=== PATIENT | female | born 1955 | race African-American/Black ===

== ENCOUNTER 2016-12-29 11:41 | Inpatient (IN) | payer OTHER ==
[2016-12-29 12:54] VITALS: BMI 22.1
--- NOTE | 2016-12-29 17:55 | HP ---
Admission ROS [facility] - [facility] Chief Complaint: I WANT TO GO TO REHAB Allergies/Adverse Reactions: Allergies Allergy/AdvReac Type Severity Reaction Status Date / Time No Known Allergies Allergy Verified 12/29/16 15:29 History of Present Illness: 61 YEARS OLD FEMALE WITH LONG HISTORY OF ALCOHOL COCAINE NICOTINE DEPENDENCE, HAS HYPERTENSION, HYPERLIPIDEMIA, AND DEPRESSION IS ADMITTED TO REHAB Exam Limitations: No Limitations - Ebola screening Have you traveled outside of the country in the last 21 days: No Have you had contact with anyone from an Ebola affected area: No Have you been sick,other than usual withdrawal symptoms: No Do you have a fever: No - Review of Systems Constitutional: Weight Stable EENT: reports: No Symptoms Reported Respiratory: reports: Shortness of Breath Cardiac: reports: No Symptoms Reported GI: reports: No Symptoms Reported : reports: No Symptoms Reported Musculoskeletal: reports: No Symptoms Reported Integumentary: reports: No Symptoms Reported Neuro: reports: No Symptoms reported Endocrine: reports: No Symptoms Reported Hematology: reports: No Symptoms Reported Psychiatric: reports: Judgement Intact, Orientated x3, Depressed Other Systems: Reviewed and Negative Patient History - Patient Medical History Hx Anemia: No Hx Asthma: No Hx Chronic Obstructive Pulmonary Disease (COPD): No Hx Cancer: No Hx Cardiac Disorders: No Hx Congestive Heart Failure: No Hx Hypertension: Yes Hx Hypercholesterolemia: Yes Hx Pacemaker: No HX Cerebrovascular Accident: No Hx Seizures: No Hx Dementia: No Hx Diabetes: No Hx Gastrointestinal Disorders: No Hx Liver Disease: No Hx Genitourinary Disorders: No Hx Sexually Transmitted Disorders: No Hx Renal Disease (ESRD): No Hx Thyroid Disease: No Hx Human Immunodeficiency Virus (HIV): No Hx Hepatitis C: No Hx Depression: Yes Hx Suicide Attempt: No Hx Bipolar Disorder: No Hx Schizophrenia: No - Patient Surgical History Past Surgical History: No - PPD History Previous Implant?: Yes Documented Results: Negative w/o proof Implanted On Prior [facility] Admission?: No PPD to be Administered?: Yes - Reproductive History Patient is a Female of Child Bearing Age (11 -55 yrs old): No Patient : No - Smoking Cessation Smoking history: Current every day smoker Have you smoked in the past 12 months: Yes Aproximately how many cigarettes per day: 3 Cigars Per Day: 0 Hx Chewing Tobacco Use: No Initiated information on smoking cessation: Yes 'Breaking Loose' booklet given: 12/29/16 - Substance & Tx. History Hx Alcohol Use: Yes Hx Substance Use: Yes Substance Use Type: Alcohol, Cocaine Hx Substance Use Treatment: Yes - Substances Abused Alcohol Route: Oral Frequency: Daily Amount used: [id number] Age of first use: 27 Date of Last Use: 12/29/16 (12/22/16) Family Disease History - Family Disease History Family Disease History: Heart Disease: Sister () Admission Physical Exam [facility] - Vital Signs Vital Signs: Vital Signs - 24 hr 12/29/16 12:52 Temperature 97.1 F L Pulse Rate 81 Respiratory 16 Rate Blood Pressure 120/79 - Physical General Appearance: Yes: No Apparent Distress, Nourished, Appropriately Dressed HEENTM: Yes: Hearing grossly Normal, Normal ENT Inspection, Normocephalic, Normal Voice Respiratory: Yes: Chest Non-Tender, Lungs Clear, Normal Breath Sounds, No Respiratory Distress, No Accessory Muscle Use Neck: Yes: Supple, Trachea in good position Breast: Yes: Breasts Symetrical Cardiology: Yes: Regular Rhythm, Regular Rate, S1, S2 Abdominal: Yes: Non Tender, Soft Genitourinary: Yes: Within Normal Limits Back: Yes: Normal Inspection Musculoskeletal: Yes: full range of Motion, Gait Steady Extremities: Yes: Normal Inspection, Normal Range of Motion, Non-Tender Neurological: Yes: Fully Oriented, Alert, Motor Strength 5/5, Normal Response, Depressed Affect Integumentary: Yes: Warm Lymphatic: Yes: Within Normal Limits - Diagnostic (1) Alcohol dependence with uncomplicated withdrawal Current Visit: Yes Status: Chronic (2) Cocaine dependence, uncomplicated Current Visit: Yes Status: Chronic (3) Hypertension Current Visit: Yes Status: Chronic Qualifiers: Hypertension type: essential hypertension Qualified Code(s): I10 - Essential (primary) hypertension (4) Hyperlipidemia Current Visit: Yes Status: Chronic Qualifiers: Hyperlipidemia type: pure hypercholesterolemia Qualified Code(s): E78.00 - Pure hypercholesterolemia, unspecified; E78.0 - Pure hypercholesterolemia (5) Nicotine dependence Current Visit: Yes Status: Chronic Qualifiers: Nicotine product type: cigarettes Substance use status: in withdrawal Qualified Code(s): F17.213 - Nicotine dependence, cigarettes, with withdrawal (6) Depression (emotion) Current Visit: Yes Status: Suspected Qualifiers: Depression Type: dysthymia Qualified Code(s): F34.1 - Dysthymic disorder Cleared for Admission [facility] - Detox or Rehab [facility] Level of Care: Observation Bed Detox Regimen/Protocol: Not Applicable Claeared for Rehab Admission: Yes [facility] Breath Alcohol Content Breath Alcohol Content: 0.022 Urine Pregancy Test - Result Urine Test Results: Negative- NO Line Present Urine Drug Screen - Results Drug Screen Negative: No Urine Drug Screen Results: DIPAK-Cocaine
[2016-12-29] MEDS ORDERED: diphenhydrAMINE HCL 50 MG CAPSULE PO PRN (17:56)
[2016-12-29] MEDS ORDERED: hydrOXYzine PAMOATE 50 MG CAPSULE (FP) PO PRN (17:56)
[2016-12-29] MEDS ORDERED: MENTHOL/PHENOL 1 EACH UD MM PRN (17:56)
[2016-12-29] MEDS ORDERED: MAGNESIUM HYDROX 2400MG/30ML ORAL SUSPENSION 30 ML CUP PO PRN (17:56)
[2016-12-29] MEDS ORDERED: MAGNESIUM CITRATE 300 ML BOTTLE PO PRN (17:56)
[2016-12-29] MEDS ORDERED: LOPERAMIDE HCL 2 MG CAPSULE PO PRN (17:56)
[2016-12-29] MEDS ORDERED: ACETAMINOPHEN 325 MG TABLET (FP) PO PRN (17:56)
[2016-12-29] MEDS ORDERED: guaiFENesin/D-METHORPHAN HB 10 ML UNIT-DOSE CUPS PO PRN (17:56)
[2016-12-29] MEDS ORDERED: NICOTINE POLACRILEX 2 MG GUM BC PRN (17:56)
[2016-12-29 22:26] LABS: URINE APPEARANCE SLCLOUDY; URINE BILIRUBIN NEGATIVE (NEGATIVE); URINE BLOOD NEGATIVE (NEGATIVE); URINE COLOR LTYELLOW; URINE GLUCOSE (UA) NEGATIVE (NEGATIVE); URINE KETONE NEGATIVE (NEGATIVE); URINE NITRITE NEGATIVE (NEGATIVE); URINE PROTEIN NEGATIVE (NEGATIVE); URINE UROBILINOGEN NEGATIVE E.U./dl (0.2-1.0)
[2016-12-29] MEDS: ATORVASTATIN CA 10 MG TABLET (FP) PO SCH (22:40)
[2016-12-29 22:42] LABS: URINE LEUK ESTERASE 3+ (NEGATIVE)
[2016-12-29 23:01] LABS: URINE BACTERIA RARE /hpf (NONE SEEN); URINE MUCUS RARE; URINE RBC 5 /hpf (0-3); URINE WBC 9 /hpf (3-5); YEAST FEW
[2016-12-29] MEDS: THIAMINE HCL 100 MG TABLET (FP) PO SCH (23:11)
[2016-12-29] MEDS: BENZTROPINE MESYLATE 1 MG TABLET (FP) PO SCH (23:14)
[2016-12-29] MEDS: risperiDONE 0.5 MG TABLET (FP) PO SCH (23:14)
--- NOTE | 2016-12-30 09:17 | EKG ---
Test Reason : Blood Pressure : / mmHG Vent. Rate : 068 BPM Atrial Rate : 068 BPM P-R Int : 196 ms QRS Dur : 088 ms QT Int : 398 ms P-R-T Axes : 051 080 076 degrees QTc Int : 423 ms NORMAL SINUS RHYTHM NONSPECIFIC T WAVE ABNORMALITY ABNORMAL ECG NO PREVIOUS ECGS AVAILABLE Confirmed by CHRISTINE FLORENCE MD ([id number]) on 12/30/2016 9:17:09 AM Referred By: Lori Che Confirmed By:CHRISTINE FLORENCE MD
[2016-12-30 09:50] LABS: MCHC 33.6 g/dl (32.0-36.0); MEAN PLT VOLUME 9.3 fl (7.5-11.1); PLATELET COUNT 210 K/MM3 (134-434); RDW 13.8 % (11.6-15.6); WHITE BLOOD COUNT 6.8 K/mm3 (4.0-10.0)
[2016-12-30 10:17] LABS: ALBUMIN 3.9 g/dl (3.4-5.0); ANION GAP 9 (8-16); CALCIUM 9.1 mg/dL (8.5-10.1); CO2 28 mmol/L (21-32); GLUCOSE,RANDOM 70 mg/dL (74-106)
[2016-12-30 10:20] LABS: ALK PHOS 67 U/L (45-117); BILIRUBIN,TOTAL 0.4 mg/dL (0.2-1.0); COCKROFT - GAULT 96.1435; CREATININE 0.6 mg/dL (0.55-1.02); SGOT/AST 22 U/L (15-37); SGPT/ALT 22 U/L (12-78); TOT PROT 7.8 g/dl (6.4-8.2)
[2016-12-30] MEDS: PRENATAL VITAMINS W/ FOLIC ACID TABLET (FP) PO SCH (10:57)
[2016-12-30] MEDS: TOPIRAMATE 25 MG TABLET (FP) PO SCH ×2 (10:58→10:59)
[2016-12-30] MEDS: ASPIRIN 81 MG CHEWABLE TABLETS PO SCH (10:58)
[2016-12-30] MEDS: amLODIPine BESYLATE 5 MG TABLET (FP) PO SCH (10:58)
[2016-12-30] MEDS: NICOTINE 14 MG/24 HOURS TOPICAL PATCH TD SCH (10:59)
[2016-12-30 11:11] LABS: HIV 1 & 2 AB NEGATIVE; HIV 1 AGp24 NEGATIVE
[2016-12-30] MEDS ORDERED: PNEUMOC 13-VAL CONJ-DIP CRM/PF 0.5 ML DISP.SYRIN IM ONE (12:00)
--- NOTE | 2016-12-30 13:51 | HP ---
Psychiatrist Admission - Data Date of interview: 12/30/16 Admission source: [facility] Identifying data: This is the first admission to [address] [place] [address] for this 61 years old single AA childless female resides in Supportive housing,on SSI. Medical History: Significanr for HTN,Hyperlipidemia. Psychiatric History: First contact with psychiatrist was in 1984 after having first psychotic episode.Patient was admitted to [facility].Patient was dx with Schizoaffective disorder.She was placed on [facility]with good response.No more psychiatric hospitalizations,no suicidal attempts.Patient sees psychiatrist on outpatient basis,currently she is attending [facility] clinic in the [place].Current medications:Trazodone 100 mg po hs and Risperidone 2 mg po hs Physical/Sexual Abuse/Trauma History: denies Vital Signs: Vital Signs - 24 hr 12/30/16 12/30/16 12/30/16 00:30 03:30 07:52 Temperature 98.1 F Pulse Rate 67 Respiratory 17 16 18 Rate Blood Pressure 111/72 12/30/16 10:00 Temperature Pulse Rate 66 Respiratory Rate Blood Pressure 115/68 Allergies/Adverse Reactions: Allergies Allergy/AdvReac Type Severity Reaction Status Date / Time No Known Allergies Allergy Verified 12/29/16 15:29 Date of last physical exam: 12/29/16 Concur with the findings of this exam: Yes - Substance Abuse/Tx History Hx Alcohol Use: Yes (reports drinking since 23 yo,progressed to daily drinking) Hx Substance Use: Yes (cocaine /crack a few years ago) Substance Use Type: Alcohol, Cocaine Hx Substance Use Treatment: Yes (this is her first inpatient custodial treatment ) - Admission Criteria Previous failed treatment: Yes Poor recovery environment: Yes Comorbidities: Yes Lacks judgement: Yes Mental Status Exam - Mental Status Exam Alert and Oriented to: Time, Place, Person Cognitive Function: Grossly Intact Patient Appearance: Unkempt Mood: Euthymic Affect: Mood Congruent Patient Behavior: Cooperative Speech Pattern: Clear Voice Loudness: Normal Thought Process: Goal Oriented Thought Disorder: Being Controlled Hallucinations: Denies Suicidal Ideation: Denies Homicidal Ideation: Denies Insight/Judgement: Fair Sleep: Fair Appetite: Good Muscle strength/Tone: Normal Gait/Station: Normal Psychiatric Findings - Problem List ([place] 1, 2,3) (1) Alcohol dependence with uncomplicated withdrawal Current Visit: Yes Status: Chronic (2) Cocaine dependence, uncomplicated Current Visit: Yes Status: Chronic (3) Hyperlipidemia Current Visit: Yes Status: Chronic Qualifiers: Hyperlipidemia type: pure hypercholesterolemia Qualified Code(s): E78.00 - Pure hypercholesterolemia, unspecified; E78.0 - Pure hypercholesterolemia (4) Hypertension Current Visit: Yes Status: Chronic Qualifiers: Hypertension type: essential hypertension Qualified Code(s): I10 - Essential (primary) hypertension (5) Nicotine dependence Current Visit: Yes Status: Chronic Qualifiers: Nicotine product type: cigarettes Substance use status: in withdrawal Qualified Code(s): F17.213 - Nicotine dependence, cigarettes, with withdrawal (6) Schizoaffective disorder Current Visit: Yes Status: Chronic - Initial Treatment Plan Initial Treatment Plan: Risperidone 2 mg po hs and Trazodone 100 mg po hs.Will monitor progress.
[2016-12-30] MEDS ORDERED: PNEUMOCOCCAL 23 VACCINE 0.5 ML VIAL IM ONE (15:26)
[2016-12-30] MEDS: BENZTROPINE MESYLATE 1 MG TABLET (FP) PO SCH (22:05)
[2016-12-30] MEDS: risperiDONE 0.5 MG TABLET (FP) PO SCH (22:05)
[2016-12-30] MEDS: ATORVASTATIN CA 10 MG TABLET (FP) PO SCH (22:05)
[2016-12-30] MEDS: THIAMINE HCL 100 MG TABLET (FP) PO SCH (22:05)
[2016-12-31] MEDS: PRENATAL VITAMINS W/ FOLIC ACID TABLET (FP) PO SCH (10:50)
[2016-12-31] MEDS: ASPIRIN 81 MG CHEWABLE TABLETS PO SCH (10:50)
[2016-12-31] MEDS: TOPIRAMATE 25 MG TABLET (FP) PO SCH ×2 (10:50→10:53)
[2016-12-31] MEDS: amLODIPine BESYLATE 5 MG TABLET (FP) PO SCH (10:50)
[2016-12-31] MEDS: NICOTINE 14 MG/24 HOURS TOPICAL PATCH TD SCH (10:51)
[2016-12-31] MEDS ORDERED: PNEUMOC 13-VAL CONJ-DIP CRM/PF 0.5 ML DISP.SYRIN IM ONE (12:00)
--- NOTE | 2016-12-31 16:17 | EKG ---
Test Reason : Blood Pressure : / mmHG Vent. Rate : 068 BPM Atrial Rate : 068 BPM P-R Int : 196 ms QRS Dur : 090 ms QT Int : 420 ms P-R-T Axes : 065 080 049 degrees QTc Int : 446 ms NORMAL SINUS RHYTHM NONSPECIFIC T WAVE ABNORMALITY ABNORMAL ECG WHEN COMPARED WITH ECG OF 29-DEC-2016 22:03, NONSPECIFIC T WAVE ABNORMALITY NOW EVIDENT IN INFERIOR LEADS NONSPECIFIC T WAVE ABNORMALITY HAS REPLACED INVERTED T WAVES IN ANTERIOR LEADS Confirmed by SHARITA JEAN MD ([id number]) on 12/31/2016 4:17:06 PM Referred By: Lori Che Confirmed By:SHARITA JEAN MD
[2016-12-31] MEDS: BENZTROPINE MESYLATE 1 MG TABLET (FP) PO SCH (21:56)
[2016-12-31] MEDS: ATORVASTATIN CA 10 MG TABLET (FP) PO SCH (21:56)
[2016-12-31] MEDS: risperiDONE 0.5 MG TABLET (FP) PO SCH (21:56)
[2016-12-31] MEDS: THIAMINE HCL 100 MG TABLET (FP) PO SCH (21:57)
[2017-01-01] MEDS: PRENATAL VITAMINS W/ FOLIC ACID TABLET (FP) PO SCH (10:24)
[2017-01-01] MEDS: TOPIRAMATE 25 MG TABLET (FP) PO SCH ×2 (10:24→10:26)
[2017-01-01] MEDS: amLODIPine BESYLATE 5 MG TABLET (FP) PO SCH (10:24)
[2017-01-01] MEDS: ASPIRIN 81 MG CHEWABLE TABLETS PO SCH (10:25)
[2017-01-01] MEDS: NICOTINE 14 MG/24 HOURS TOPICAL PATCH TD SCH (10:25)
[2017-01-01] MEDS: risperiDONE 2 MG TABLET PO SCH (21:57)
[2017-01-01] MEDS: ATORVASTATIN CA 10 MG TABLET (FP) PO SCH (21:57)
[2017-01-01] MEDS: traZODone HCL 100 MG TABLET (FP) PO SCH (21:57)
[2017-01-01] MEDS: BENZTROPINE MESYLATE 1 MG TABLET (FP) PO SCH (21:57)
[2017-01-01] MEDS: THIAMINE HCL 100 MG TABLET (FP) PO SCH (21:57)
[2017-01-02] MEDS: NICOTINE 14 MG/24 HOURS TOPICAL PATCH TD SCH (10:54)
[2017-01-02] MEDS: TOPIRAMATE 25 MG TABLET (FP) PO SCH ×2 (10:54→10:57)
[2017-01-02] MEDS: PRENATAL VITAMINS W/ FOLIC ACID TABLET (FP) PO SCH (10:54)
[2017-01-02] MEDS: ASPIRIN 81 MG CHEWABLE TABLETS PO SCH (10:54)
[2017-01-02] MEDS: amLODIPine BESYLATE 5 MG TABLET (FP) PO SCH (10:54)
[2017-01-02] MEDS: traZODone HCL 100 MG TABLET (FP) PO SCH (21:47)
[2017-01-02] MEDS: risperiDONE 2 MG TABLET PO SCH (21:47)
[2017-01-02] MEDS: THIAMINE HCL 100 MG TABLET (FP) PO SCH (21:48)
[2017-01-02] MEDS: ATORVASTATIN CA 10 MG TABLET (FP) PO SCH (21:48)
[2017-01-02] MEDS: BENZTROPINE MESYLATE 1 MG TABLET (FP) PO SCH (21:48)
[2017-01-03] MEDS: PRENATAL VITAMINS W/ FOLIC ACID TABLET (FP) PO SCH (10:49)
[2017-01-03] MEDS: TOPIRAMATE 25 MG TABLET (FP) PO SCH (10:50)
[2017-01-03] MEDS: ASPIRIN 81 MG CHEWABLE TABLETS PO SCH (10:50)
[2017-01-03] MEDS: NICOTINE 14 MG/24 HOURS TOPICAL PATCH TD SCH (10:51)
[2017-01-03] MEDS: amLODIPine BESYLATE 5 MG TABLET (FP) PO SCH (11:19)
[2017-01-03] MEDS ORDERED: PT OWN MED DRAWER 7, Y5N ONE ×2 (11:20→13:34)
[2017-01-03] MEDS: ERGOCALCIFEROL (VITAMIN D2) 50,000 UNIT CAPSULE (FP) PO SCH (15:00)
[2017-01-03] MEDS: ATORVASTATIN CA 10 MG TABLET (FP) PO SCH (21:55)
[2017-01-03] MEDS: THIAMINE HCL 100 MG TABLET (FP) PO SCH (21:55)
[2017-01-03] MEDS: risperiDONE 2 MG TABLET PO SCH (21:55)
[2017-01-03] MEDS: BENZTROPINE MESYLATE 1 MG TABLET (FP) PO SCH (21:55)
[2017-01-03] MEDS: traZODone HCL 100 MG TABLET (FP) PO SCH (21:55)
[2017-01-04] MEDS ORDERED: CHOLECALCIFEROL PO SCH (10:00)
[2017-01-04] MEDS: ASPIRIN 81 MG CHEWABLE TABLETS PO SCH (10:54)
[2017-01-04] MEDS: NICOTINE 14 MG/24 HOURS TOPICAL PATCH TD SCH (10:54)
[2017-01-04] MEDS: TOPIRAMATE 25 MG TABLET (FP) PO SCH (10:54)
[2017-01-04] MEDS: amLODIPine BESYLATE 5 MG TABLET (FP) PO SCH (10:54)
[2017-01-04] MEDS: PRENATAL VITAMINS W/ FOLIC ACID TABLET (FP) PO SCH (10:54)
[2017-01-04] MEDS: risperiDONE 2 MG TABLET PO SCH (23:04)
[2017-01-04] MEDS: traZODone HCL 100 MG TABLET (FP) PO SCH (23:04)
[2017-01-04] MEDS: THIAMINE HCL 100 MG TABLET (FP) PO SCH (23:04)
[2017-01-04] MEDS: BENZTROPINE MESYLATE 1 MG TABLET (FP) PO SCH (23:04)
[2017-01-04] MEDS: ATORVASTATIN CA 10 MG TABLET (FP) PO SCH (23:04)
[2017-01-05] MEDS: ASPIRIN 81 MG CHEWABLE TABLETS PO SCH (11:04)
[2017-01-05] MEDS: amLODIPine BESYLATE 5 MG TABLET (FP) PO SCH (11:04)
[2017-01-05] MEDS: PRENATAL VITAMINS W/ FOLIC ACID TABLET (FP) PO SCH (11:04)
[2017-01-05] MEDS: TOPIRAMATE 25 MG TABLET (FP) PO SCH (11:05)
[2017-01-05] MEDS: NICOTINE 14 MG/24 HOURS TOPICAL PATCH TD SCH (11:05)
[2017-01-05] MEDS: risperiDONE 2 MG TABLET PO SCH (21:59)
[2017-01-05] MEDS: ATORVASTATIN CA 10 MG TABLET (FP) PO SCH (21:59)
[2017-01-05] MEDS: THIAMINE HCL 100 MG TABLET (FP) PO SCH (21:59)
[2017-01-05] MEDS: traZODone HCL 100 MG TABLET (FP) PO SCH (21:59)
[2017-01-05] MEDS: BENZTROPINE MESYLATE 1 MG TABLET (FP) PO SCH (21:59)
[2017-01-06] MEDS: ASPIRIN 81 MG CHEWABLE TABLETS PO SCH (10:41)
[2017-01-06] MEDS: NICOTINE 14 MG/24 HOURS TOPICAL PATCH TD SCH (10:41)
[2017-01-06] MEDS: TOPIRAMATE 25 MG TABLET (FP) PO SCH (10:42)
[2017-01-06] MEDS: amLODIPine BESYLATE 5 MG TABLET (FP) PO SCH (10:42)
[2017-01-06] MEDS: PRENATAL VITAMINS W/ FOLIC ACID TABLET (FP) PO SCH (10:42)
[2017-01-06] MEDS: BENZTROPINE MESYLATE 1 MG TABLET (FP) PO SCH (22:06)
[2017-01-06] MEDS: THIAMINE HCL 100 MG TABLET (FP) PO SCH (22:06)
[2017-01-06] MEDS: traZODone HCL 100 MG TABLET (FP) PO SCH (22:06)
[2017-01-06] MEDS: risperiDONE 2 MG TABLET PO SCH (22:06)
[2017-01-06] MEDS: ATORVASTATIN CA 10 MG TABLET (FP) PO SCH (22:06)
[2017-01-07] MEDS: PRENATAL VITAMINS W/ FOLIC ACID TABLET (FP) PO SCH (10:58)
[2017-01-07] MEDS: ASPIRIN 81 MG CHEWABLE TABLETS PO SCH (10:58)
[2017-01-07] MEDS: amLODIPine BESYLATE 5 MG TABLET (FP) PO SCH (10:59)
[2017-01-07] MEDS: NICOTINE 14 MG/24 HOURS TOPICAL PATCH TD SCH (10:59)
[2017-01-07] MEDS: TOPIRAMATE 25 MG TABLET (FP) PO SCH (10:59)
[2017-01-07] MEDS: traZODone HCL 100 MG TABLET (FP) PO SCH (22:02)
[2017-01-07] MEDS: THIAMINE HCL 100 MG TABLET (FP) PO SCH (22:02)
[2017-01-07] MEDS: ATORVASTATIN CA 10 MG TABLET (FP) PO SCH (22:02)
[2017-01-07] MEDS: BENZTROPINE MESYLATE 1 MG TABLET (FP) PO SCH (22:02)
[2017-01-07] MEDS: risperiDONE 2 MG TABLET PO SCH (22:02)
[2017-01-08] MEDS: ASPIRIN 81 MG CHEWABLE TABLETS PO SCH (11:16)
[2017-01-08] MEDS: amLODIPine BESYLATE 5 MG TABLET (FP) PO SCH (11:16)
[2017-01-08] MEDS: PRENATAL VITAMINS W/ FOLIC ACID TABLET (FP) PO SCH (11:16)
[2017-01-08] MEDS: TOPIRAMATE 25 MG TABLET (FP) PO SCH (11:16)
[2017-01-08] MEDS: NICOTINE 14 MG/24 HOURS TOPICAL PATCH TD SCH (11:17)
[2017-01-08] MEDS: ATORVASTATIN CA 10 MG TABLET (FP) PO SCH (22:04)
[2017-01-08] MEDS: BENZTROPINE MESYLATE 1 MG TABLET (FP) PO SCH (22:04)
[2017-01-08] MEDS: THIAMINE HCL 100 MG TABLET (FP) PO SCH (22:05)
[2017-01-08] MEDS: traZODone HCL 100 MG TABLET (FP) PO SCH (22:06)
[2017-01-08] MEDS: risperiDONE 2 MG TABLET PO SCH (22:06)
[2017-01-09] MEDS: PRENATAL VITAMINS W/ FOLIC ACID TABLET (FP) PO SCH (10:45)
[2017-01-09] MEDS: TOPIRAMATE 25 MG TABLET (FP) PO SCH (10:45)
[2017-01-09] MEDS: ASPIRIN 81 MG CHEWABLE TABLETS PO SCH (10:45)
[2017-01-09] MEDS: amLODIPine BESYLATE 5 MG TABLET (FP) PO SCH (10:46)
[2017-01-09] MEDS: NICOTINE 14 MG/24 HOURS TOPICAL PATCH TD SCH (10:46)
[2017-01-09] MEDS: traZODone HCL 100 MG TABLET (FP) PO SCH (21:58)
[2017-01-09] MEDS: BENZTROPINE MESYLATE 1 MG TABLET (FP) PO SCH (21:58)
[2017-01-09] MEDS: risperiDONE 2 MG TABLET PO SCH (21:58)
[2017-01-09] MEDS: ATORVASTATIN CA 10 MG TABLET (FP) PO SCH (21:58)
[2017-01-09] MEDS: THIAMINE HCL 100 MG TABLET (FP) PO SCH (21:58)
[2017-01-10] MEDS ORDERED: PT OWN MED DRAWER 7, Y5N ONE (08:39)
[2017-01-10] MEDS: ASPIRIN 81 MG CHEWABLE TABLETS PO SCH (10:42)
[2017-01-10] MEDS: NICOTINE 14 MG/24 HOURS TOPICAL PATCH TD SCH (10:43)
[2017-01-10] MEDS: TOPIRAMATE 25 MG TABLET (FP) PO SCH (10:43)
[2017-01-10] MEDS: ERGOCALCIFEROL (VITAMIN D2) 50,000 UNIT CAPSULE (FP) PO SCH (10:43)
[2017-01-10] MEDS: PRENATAL VITAMINS W/ FOLIC ACID TABLET (FP) PO SCH (10:43)
[2017-01-10] MEDS: amLODIPine BESYLATE 5 MG TABLET (FP) PO SCH (10:43)
[2017-01-10] MEDS: BENZTROPINE MESYLATE 1 MG TABLET (FP) PO SCH (22:00)
[2017-01-10] MEDS: traZODone HCL 100 MG TABLET (FP) PO SCH (22:00)
[2017-01-10] MEDS: THIAMINE HCL 100 MG TABLET (FP) PO SCH (22:00)
[2017-01-10] MEDS: risperiDONE 2 MG TABLET PO SCH (22:01)
[2017-01-10] MEDS: ATORVASTATIN CA 10 MG TABLET (FP) PO SCH (22:01)
[2017-01-11] MEDS: ASPIRIN 81 MG CHEWABLE TABLETS PO SCH (11:15)
[2017-01-11] MEDS: PRENATAL VITAMINS W/ FOLIC ACID TABLET (FP) PO SCH (11:16)
[2017-01-11] MEDS: amLODIPine BESYLATE 5 MG TABLET (FP) PO SCH (11:16)
[2017-01-11] MEDS: NICOTINE 14 MG/24 HOURS TOPICAL PATCH TD SCH (11:16)
[2017-01-11] MEDS: TOPIRAMATE 25 MG TABLET (FP) PO SCH (11:17)
[2017-01-11] MEDS: risperiDONE 2 MG TABLET PO SCH (22:09)
[2017-01-11] MEDS: ATORVASTATIN CA 10 MG TABLET (FP) PO SCH (22:09)
[2017-01-11] MEDS: THIAMINE HCL 100 MG TABLET (FP) PO SCH (22:09)
[2017-01-11] MEDS: BENZTROPINE MESYLATE 1 MG TABLET (FP) PO SCH (22:09)
[2017-01-11] MEDS: traZODone HCL 100 MG TABLET (FP) PO SCH (22:09)
[2017-01-12] MEDS: amLODIPine BESYLATE 5 MG TABLET (FP) PO SCH (11:07)
[2017-01-12] MEDS: TOPIRAMATE 25 MG TABLET (FP) PO SCH (11:07)
[2017-01-12] MEDS: PRENATAL VITAMINS W/ FOLIC ACID TABLET (FP) PO SCH (11:07)
[2017-01-12] MEDS: NICOTINE 14 MG/24 HOURS TOPICAL PATCH TD SCH (11:07)
[2017-01-12] MEDS: ASPIRIN 81 MG CHEWABLE TABLETS PO SCH (11:07)
[2017-01-12] MEDS: ATORVASTATIN CA 10 MG TABLET (FP) PO SCH (21:50)
[2017-01-12] MEDS: risperiDONE 2 MG TABLET PO SCH (21:50)
[2017-01-12] MEDS: BENZTROPINE MESYLATE 1 MG TABLET (FP) PO SCH (21:50)
[2017-01-12] MEDS: traZODone HCL 100 MG TABLET (FP) PO SCH (21:50)
[2017-01-12] MEDS: THIAMINE HCL 100 MG TABLET (FP) PO SCH (21:50)
[2017-01-13] MEDS: amLODIPine BESYLATE 5 MG TABLET (FP) PO SCH (10:34)
[2017-01-13] MEDS: ASPIRIN 81 MG CHEWABLE TABLETS PO SCH (10:34)
[2017-01-13] MEDS: NICOTINE 14 MG/24 HOURS TOPICAL PATCH TD SCH (10:34)
[2017-01-13] MEDS: PRENATAL VITAMINS W/ FOLIC ACID TABLET (FP) PO SCH (10:34)
[2017-01-13] MEDS: TOPIRAMATE 25 MG TABLET (FP) PO SCH (10:34)
[2017-01-13] MEDS: BENZTROPINE MESYLATE 1 MG TABLET (FP) PO SCH (22:01)
[2017-01-13] MEDS: ATORVASTATIN CA 10 MG TABLET (FP) PO SCH (22:01)
[2017-01-13] MEDS: risperiDONE 2 MG TABLET PO SCH (22:01)
[2017-01-13] MEDS: THIAMINE HCL 100 MG TABLET (FP) PO SCH (22:01)
[2017-01-13] MEDS: traZODone HCL 100 MG TABLET (FP) PO SCH (22:01)
[2017-01-13] MEDS ORDERED: PT OWN MED DRAWER 7, Y5N ONE (23:09)
[2017-01-14] MEDS: P-EPHED 60MG/TRIPROLIDI 2.5MG TABLET PO PRN (06:49)
[2017-01-14] MEDS: ASPIRIN 81 MG CHEWABLE TABLETS PO SCH (10:34)
[2017-01-14] MEDS: NICOTINE 14 MG/24 HOURS TOPICAL PATCH TD SCH (10:34)
[2017-01-14] MEDS: amLODIPine BESYLATE 5 MG TABLET (FP) PO SCH (10:35)
[2017-01-14] MEDS: TOPIRAMATE 25 MG TABLET (FP) PO SCH (10:35)
[2017-01-14] MEDS: PRENATAL VITAMINS W/ FOLIC ACID TABLET (FP) PO SCH (10:35)
[2017-01-14] MEDS ORDERED: PT OWN MED DRAWER 7, Y5N ONE (10:45)
[2017-01-14] MEDS: ATORVASTATIN CA 10 MG TABLET (FP) PO SCH (22:15)
[2017-01-14] MEDS: THIAMINE HCL 100 MG TABLET (FP) PO SCH (22:15)
[2017-01-14] MEDS: traZODone HCL 100 MG TABLET (FP) PO SCH (22:15)
[2017-01-14] MEDS: risperiDONE 2 MG TABLET PO SCH (22:16)
[2017-01-14] MEDS: BENZTROPINE MESYLATE 1 MG TABLET (FP) PO SCH (22:16)
[2017-01-15] MEDS: NICOTINE 14 MG/24 HOURS TOPICAL PATCH TD SCH (10:33)
[2017-01-15] MEDS: amLODIPine BESYLATE 5 MG TABLET (FP) PO SCH (10:33)
[2017-01-15] MEDS: ASPIRIN 81 MG CHEWABLE TABLETS PO SCH (10:35)
[2017-01-15] MEDS: TOPIRAMATE 25 MG TABLET (FP) PO SCH (10:35)
[2017-01-15] MEDS: PRENATAL VITAMINS W/ FOLIC ACID TABLET (FP) PO SCH (10:35)
[2017-01-15] MEDS: MAG HYDROX/AL HYDROX/SIMETH 30 ML UNIT-DOSE CUP PO PRN (19:01)
[2017-01-15] MEDS: BENZTROPINE MESYLATE 1 MG TABLET (FP) PO SCH (22:19)
[2017-01-15] MEDS: risperiDONE 2 MG TABLET PO SCH (22:19)
[2017-01-15] MEDS: ATORVASTATIN CA 10 MG TABLET (FP) PO SCH (22:20)
[2017-01-15] MEDS: THIAMINE HCL 100 MG TABLET (FP) PO SCH (22:20)
[2017-01-15] MEDS: traZODone HCL 100 MG TABLET (FP) PO SCH (22:20)
[2017-01-16] MEDS: PRENATAL VITAMINS W/ FOLIC ACID TABLET (FP) PO SCH (10:43)
[2017-01-16] MEDS: NICOTINE 14 MG/24 HOURS TOPICAL PATCH TD SCH (10:43)
[2017-01-16] MEDS: amLODIPine BESYLATE 5 MG TABLET (FP) PO SCH (10:44)
[2017-01-16] MEDS: TOPIRAMATE 25 MG TABLET (FP) PO SCH (10:44)
[2017-01-16] MEDS: ASPIRIN 81 MG CHEWABLE TABLETS PO SCH (10:44)
[2017-01-16] MEDS: BENZTROPINE MESYLATE 1 MG TABLET (FP) PO SCH (21:53)
[2017-01-16] MEDS: traZODone HCL 100 MG TABLET (FP) PO SCH (21:53)
[2017-01-16] MEDS: ATORVASTATIN CA 10 MG TABLET (FP) PO SCH (21:53)
[2017-01-16] MEDS: risperiDONE 2 MG TABLET PO SCH (21:53)
[2017-01-16] MEDS: THIAMINE HCL 100 MG TABLET (FP) PO SCH (21:54)
[2017-01-17] MEDS ORDERED: PT OWN MED DRAWER 7, Y5N ONE ×3 (09:11→10:39)
[2017-01-17] MEDS: amLODIPine BESYLATE 5 MG TABLET (FP) PO SCH (10:34)
[2017-01-17] MEDS: ASPIRIN 81 MG CHEWABLE TABLETS PO SCH (10:35)
[2017-01-17] MEDS: PRENATAL VITAMINS W/ FOLIC ACID TABLET (FP) PO SCH (10:35)
[2017-01-17] MEDS: ERGOCALCIFEROL (VITAMIN D2) 50,000 UNIT CAPSULE (FP) PO SCH (10:35)
[2017-01-17] MEDS: TOPIRAMATE 25 MG TABLET (FP) PO SCH (10:35)
[2017-01-17] MEDS: NICOTINE 14 MG/24 HOURS TOPICAL PATCH TD SCH (10:36)
[2017-01-17] MEDS: BENZTROPINE MESYLATE 1 MG TABLET (FP) PO SCH (21:58)
[2017-01-17] MEDS: risperiDONE 2 MG TABLET PO SCH (21:58)
[2017-01-17] MEDS: THIAMINE HCL 100 MG TABLET (FP) PO SCH (21:58)
[2017-01-17] MEDS: ATORVASTATIN CA 10 MG TABLET (FP) PO SCH (21:58)
[2017-01-17] MEDS: traZODone HCL 100 MG TABLET (FP) PO SCH (21:58)
[2017-01-18] MEDS: P-EPHED 60MG/TRIPROLIDI 2.5MG TABLET PO PRN (06:55)
[2017-01-18] MEDS: PRENATAL VITAMINS W/ FOLIC ACID TABLET (FP) PO SCH (10:37)
[2017-01-18] MEDS: NICOTINE 14 MG/24 HOURS TOPICAL PATCH TD SCH (10:38)
[2017-01-18] MEDS: ASPIRIN 81 MG CHEWABLE TABLETS PO SCH (10:38)
[2017-01-18] MEDS: amLODIPine BESYLATE 5 MG TABLET (FP) PO SCH (10:38)
[2017-01-18] MEDS: TOPIRAMATE 25 MG TABLET (FP) PO SCH (10:38)
[2017-01-18] MEDS: MAG HYDROX/AL HYDROX/SIMETH 30 ML UNIT-DOSE CUP PO PRN (19:56)
[2017-01-18] MEDS: traZODone HCL 100 MG TABLET (FP) PO SCH (21:48)
[2017-01-18] MEDS: BENZTROPINE MESYLATE 1 MG TABLET (FP) PO SCH (21:48)
[2017-01-18] MEDS: THIAMINE HCL 100 MG TABLET (FP) PO SCH (21:48)
[2017-01-18] MEDS: risperiDONE 2 MG TABLET PO SCH (21:48)
[2017-01-18] MEDS: ATORVASTATIN CA 10 MG TABLET (FP) PO SCH (21:48)
[2017-01-19] MEDS: NICOTINE 14 MG/24 HOURS TOPICAL PATCH TD SCH (11:02)
[2017-01-19] MEDS: PRENATAL VITAMINS W/ FOLIC ACID TABLET (FP) PO SCH (11:03)
[2017-01-19] MEDS: amLODIPine BESYLATE 5 MG TABLET (FP) PO SCH (11:03)
[2017-01-19] MEDS: TOPIRAMATE 25 MG TABLET (FP) PO SCH (11:03)
[2017-01-19] MEDS: ASPIRIN 81 MG CHEWABLE TABLETS PO SCH (11:03)
[2017-01-19] MEDS: ATORVASTATIN CA 10 MG TABLET (FP) PO SCH (21:47)
[2017-01-19] MEDS: BENZTROPINE MESYLATE 1 MG TABLET (FP) PO SCH (21:47)
[2017-01-19] MEDS: THIAMINE HCL 100 MG TABLET (FP) PO SCH (21:47)
[2017-01-19] MEDS: risperiDONE 2 MG TABLET PO SCH (21:47)
[2017-01-19] MEDS: traZODone HCL 100 MG TABLET (FP) PO SCH (21:48)
[2017-01-20] MEDS: TOPIRAMATE 25 MG TABLET (FP) PO SCH (10:42)
[2017-01-20] MEDS: amLODIPine BESYLATE 5 MG TABLET (FP) PO SCH (10:42)
[2017-01-20] MEDS: ASPIRIN 81 MG CHEWABLE TABLETS PO SCH (10:42)
[2017-01-20] MEDS: NICOTINE 14 MG/24 HOURS TOPICAL PATCH TD SCH (10:42)
[2017-01-20] MEDS: PRENATAL VITAMINS W/ FOLIC ACID TABLET (FP) PO SCH (10:42)
[2017-01-20] MEDS: ATORVASTATIN CA 10 MG TABLET (FP) PO SCH (22:00)
[2017-01-20] MEDS: THIAMINE HCL 100 MG TABLET (FP) PO SCH (22:00)
[2017-01-20] MEDS: BENZTROPINE MESYLATE 1 MG TABLET (FP) PO SCH (22:00)
[2017-01-20] MEDS: traZODone HCL 100 MG TABLET (FP) PO SCH (22:00)
[2017-01-20] MEDS: risperiDONE 2 MG TABLET PO SCH (22:00)
[2017-01-20] MEDS: MAG HYDROX/AL HYDROX/SIMETH 30 ML UNIT-DOSE CUP PO PRN (22:03)
[2017-01-21] MEDS: PRENATAL VITAMINS W/ FOLIC ACID TABLET (FP) PO SCH (10:24)
[2017-01-21] MEDS: ASPIRIN 81 MG CHEWABLE TABLETS PO SCH (10:24)
[2017-01-21] MEDS: TOPIRAMATE 25 MG TABLET (FP) PO SCH (10:24)
[2017-01-21] MEDS: amLODIPine BESYLATE 5 MG TABLET (FP) PO SCH (10:24)
[2017-01-21] MEDS: NICOTINE 14 MG/24 HOURS TOPICAL PATCH TD SCH (10:25)
[2017-01-21] MEDS: ATORVASTATIN CA 10 MG TABLET (FP) PO SCH (21:44)
[2017-01-21] MEDS: BENZTROPINE MESYLATE 1 MG TABLET (FP) PO SCH (21:44)
[2017-01-21] MEDS: THIAMINE HCL 100 MG TABLET (FP) PO SCH (21:44)
[2017-01-21] MEDS: traZODone HCL 100 MG TABLET (FP) PO SCH (21:44)
[2017-01-21] MEDS: risperiDONE 2 MG TABLET PO SCH (21:45)
[2017-01-22] MEDS: amLODIPine BESYLATE 5 MG TABLET (FP) PO SCH (10:24)
[2017-01-22] MEDS: PRENATAL VITAMINS W/ FOLIC ACID TABLET (FP) PO SCH (10:24)
[2017-01-22] MEDS: NICOTINE 14 MG/24 HOURS TOPICAL PATCH TD SCH (10:25)
[2017-01-22] MEDS: ASPIRIN 81 MG CHEWABLE TABLETS PO SCH (10:25)
[2017-01-22] MEDS: TOPIRAMATE 25 MG TABLET (FP) PO SCH (10:25)
[2017-01-22] MEDS: traZODone HCL 100 MG TABLET (FP) PO SCH (21:48)
[2017-01-22] MEDS: BENZTROPINE MESYLATE 1 MG TABLET (FP) PO SCH (21:48)
[2017-01-22] MEDS: ATORVASTATIN CA 10 MG TABLET (FP) PO SCH (21:48)
[2017-01-22] MEDS: THIAMINE HCL 100 MG TABLET (FP) PO SCH (21:48)
[2017-01-22] MEDS: risperiDONE 2 MG TABLET PO SCH (21:48)
[2017-01-23] MEDS: ASPIRIN 81 MG CHEWABLE TABLETS PO SCH (10:37)
[2017-01-23] MEDS: PRENATAL VITAMINS W/ FOLIC ACID TABLET (FP) PO SCH (10:37)
[2017-01-23] MEDS: TOPIRAMATE 25 MG TABLET (FP) PO SCH (10:38)
[2017-01-23] MEDS: amLODIPine BESYLATE 5 MG TABLET (FP) PO SCH (10:38)
[2017-01-23] MEDS: NICOTINE 14 MG/24 HOURS TOPICAL PATCH TD SCH (10:39)
[2017-01-23] MEDS: traZODone HCL 100 MG TABLET (FP) PO SCH (21:36)
[2017-01-23] MEDS: BENZTROPINE MESYLATE 1 MG TABLET (FP) PO SCH (21:36)
[2017-01-23] MEDS: risperiDONE 2 MG TABLET PO SCH (21:36)
[2017-01-23] MEDS: THIAMINE HCL 100 MG TABLET (FP) PO SCH (21:36)
[2017-01-23] MEDS: ATORVASTATIN CA 10 MG TABLET (FP) PO SCH (21:36)
[2017-01-24] MEDS: ASPIRIN 81 MG CHEWABLE TABLETS PO SCH (10:18)
[2017-01-24] MEDS: NICOTINE 14 MG/24 HOURS TOPICAL PATCH TD SCH (10:18)
[2017-01-24] MEDS: amLODIPine BESYLATE 5 MG TABLET (FP) PO SCH (10:18)
[2017-01-24] MEDS: TOPIRAMATE 25 MG TABLET (FP) PO SCH (10:18)
[2017-01-24] MEDS: PRENATAL VITAMINS W/ FOLIC ACID TABLET (FP) PO SCH (10:18)
[2017-01-24] MEDS ORDERED: PT OWN MED DRAWER 7, Y5N ONE (10:19)
[2017-01-24] MEDS: ERGOCALCIFEROL (VITAMIN D2) 50,000 UNIT CAPSULE (FP) PO SCH (10:19)
[2017-01-24] MEDS: THIAMINE HCL 100 MG TABLET (FP) PO SCH (21:45)
[2017-01-24] MEDS: ATORVASTATIN CA 10 MG TABLET (FP) PO SCH (21:45)
[2017-01-24] MEDS: risperiDONE 2 MG TABLET PO SCH (21:45)
[2017-01-24] MEDS: BENZTROPINE MESYLATE 1 MG TABLET (FP) PO SCH (21:45)
[2017-01-24] MEDS: traZODone HCL 100 MG TABLET (FP) PO SCH (21:45)
[2017-01-25] MEDS: P-EPHED 60MG/TRIPROLIDI 2.5MG TABLET PO PRN (06:07)
--- NOTE | 2017-01-25 10:05 | PN ---
Psychiatric Progress Note Vital Signs: Vital Signs Period Temp Pulse Resp BP Sys/[place] Pulse Ox Last 24 Hr 97.3 F 56 16-18 114/74 Date of Session: 01/25/17 Chief Complaint:: Discharge visit HPI: Patient addressed Alcohol and Cocaine dependence comorbid with Schizoaffective disorder. ROS: Significant for HTN,Hyperlipidemia. Current Medications: Active Medications Generic Name Dose Route Start Last Admin Trade Name Freq PRN Reason Stop Dose Admin Acetaminophen 650 mg 12/29/16 17:56 Tylenol - PO Q4H PRN PAIN Al Hydroxide/Mg Hydroxide 30 ml 12/29/16 17:56 01/20/17 22:03 Mylanta Oral Suspension - PO 30 ml Q6H PRN Administration DYSPEPSIA Amlodipine Besylate 5 mg 12/30/16 10:00 01/24/17 10:18 Norvasc - PO 5 mg DAILY ANGELES Administration Aspirin 81 mg 12/30/16 10:00 01/24/17 10:18 Asa - PO 81 mg DAILY ANGELES Administration Atorvastatin Calcium 10 mg 12/29/16 22:00 01/24/17 21:45 Lipitor - PO 10 mg HS ANGELES Administration Benztropine Mesylate 1 mg 12/29/16 22:00 01/24/17 21:45 Cogentin - PO 1 mg HS ANGELES Administration Diphenhydramine HCl 50 mg 12/29/16 17:56 12/31/16 21:58 Benadryl - PO 50 mg HSMR1 PRN Administration INSOMNIA Ergocalciferol 50,000 unit 01/03/17 10:00 01/24/17 10:19 Drisdol - PO 50,000 unit Tu@1000 ANGELES Administration Eucalyptus/Menthol/Phenol/Sorbitol 1 each 12/29/16 17:56 01/18/17 06:55 Cepastat Lozenge - MM 1 each Q4H PRN Administration SORE THROAT Guaifenesin 10 ml 12/29/16 17:56 Robitussin Dm - PO Q6H PRN COUGH Hydroxyzine Pamoate 50 mg 12/29/16 17:56 Vistaril - PO Q4H PRN AGITATION Loperamide HCl 4 mg 12/29/16 17:56 Imodium - PO Q6H PRN DIARRHEA Magnesium Citrate 300 ml 12/29/16 17:56 Citroma - PO Q48H PRN CONSTIPATION Magnesium Hydroxide 30 ml 12/29/16 17:56 Milk Of Magnesia - PO DAILY PRN CONSTIPATION Nicotine 14 mg 12/30/16 10:00 01/24/17 10:18 Nicoderm Patch - TD Not Given DAILY ANGELES Nicotine Polacrilex 2 mg 12/29/16 17:56 Nicorette Gum - BC Q2H PRN NICOTINE REPLACEMENT RX Multivit/Folic Acid/Iron 1 tab 12/30/16 10:00 01/24/17 10:18 Vitamins ([facility]) - PO 1 tab DAILY ANGELES Administration Pseudoephedrine/Triprolidine 1 combo 12/29/16 17:56 01/25/17 06:07 Actifed - PO 1 combo TID PRN Administration NASAL CONGESTION Risperidone 2 mg 01/01/17 22:00 01/24/17 21:45 Risperdal - PO 2 mg HS ANGELES Administration Thiamine HCl 100 mg 12/29/16 22:00 01/24/17 21:45 Vitamin B1 - PO 100 mg HS ANGELES Administration Topiramate 50 mg 12/30/16 10:00 01/24/17 10:18 Topamax - PO 50 mg DAILY ANGELES Administration Trazodone HCl 100 mg 01/01/17 22:00 01/24/17 21:45 Desyrel - PO 100 mg HS ANGELES Administration Current Side Effect: No Lab tests ordered: No Lab tests reviewed: Yes Provider note:: Patient will complete this program tomorrow 10/29/16.She has met her treatment goals and will continue to ADDRESS HER ISSUES ON OUTPATIENT BASIS.Patient continues to find that Risperidone 2 mg po daily,Topamax 50 mg po daily,Trazodone 100 mg po hs and Cogentin 1 mg po daily help to cope with depression,mood instability,insomnia and anxiety.scripts for 30 days supply provided. Therapy provided focusing on support system,coping skills utilization to maintain recovery. Supportive therapy provided. Patient is stable for discharge tomorrow 01/26/17. Total face to face time:: 35 Mental Status Exam - Mental Status Exam Alert and Oriented to: Time, Place, Person Cognitive Function: Grossly Intact Patient Appearance: Well Groomed Mood: Hopeful, Euthymic Affect: Appropriate, Mood Congruent Patient Behavior: Cooperative Speech Pattern: Clear Voice Loudness: Normal Thought Process: Goal Oriented Thought Disorder: Being Controlled Hallucinations: Denies Suicidal Ideation: Denies Homicidal Ideation: Denies Insight/Judgement: Fair Sleep: Fair Appetite: Good Muscle strength/Tone: Normal Gait/Station: Normal Psychiatric Treatment Plan - Problem List (1) Alcohol dependence with uncomplicated withdrawal Current Visit: Yes (2) Cocaine dependence, uncomplicated Current Visit: Yes (3) Hyperlipidemia Current Visit: Yes Qualifiers: Hyperlipidemia type: pure hypercholesterolemia Qualified Code(s): E78.00 - Pure hypercholesterolemia, unspecified; E78.0 - Pure hypercholesterolemia (4) Hypertension Current Visit: Yes Qualifiers: Hypertension type: essential hypertension Qualified Code(s): I10 - Essential (primary) hypertension (5) Nicotine dependence Current Visit: Yes Qualifiers: Nicotine product type: cigarettes Substance use status: in withdrawal Qualified Code(s): F17.213 - Nicotine dependence, cigarettes, with withdrawal (6) Schizoaffective disorder Current Visit: Yes
[2017-01-25] MEDS: TOPIRAMATE 25 MG TABLET (FP) PO SCH (10:21)
[2017-01-25] MEDS: ASPIRIN 81 MG CHEWABLE TABLETS PO SCH (10:21)
[2017-01-25] MEDS: amLODIPine BESYLATE 5 MG TABLET (FP) PO SCH (10:21)
[2017-01-25] MEDS: PRENATAL VITAMINS W/ FOLIC ACID TABLET (FP) PO SCH (10:21)
[2017-01-25] MEDS: NICOTINE 14 MG/24 HOURS TOPICAL PATCH TD SCH (10:22)
[2017-01-25] MEDS: ATORVASTATIN CA 10 MG TABLET (FP) PO SCH (21:34)
[2017-01-25] MEDS: BENZTROPINE MESYLATE 1 MG TABLET (FP) PO SCH (21:34)
[2017-01-25] MEDS: traZODone HCL 100 MG TABLET (FP) PO SCH (21:34)
[2017-01-25] MEDS: risperiDONE 2 MG TABLET PO SCH (21:34)
[2017-01-25] MEDS: THIAMINE HCL 100 MG TABLET (FP) PO SCH (21:34)
[2017-01-25] MEDS ORDERED: PT OWN MED DRAWER 7, Y5N ONE (23:41)
[2017-01-26 07:02] VITALS: TEMP 97.5
[2017-01-26] MEDS: ASPIRIN 81 MG CHEWABLE TABLETS PO SCH (09:00)
[2017-01-26] MEDS: PRENATAL VITAMINS W/ FOLIC ACID TABLET (FP) PO SCH (09:01)
[2017-01-26] MEDS: amLODIPine BESYLATE 5 MG TABLET (FP) PO SCH (09:01)
[2017-01-26] MEDS: NICOTINE 14 MG/24 HOURS TOPICAL PATCH TD SCH (09:01)
[2017-01-26] MEDS: TOPIRAMATE 25 MG TABLET (FP) PO SCH (09:01)
[2017-01-26 09:43] VITALS: BP 131/80; PULSE 68
== END 2017-01-26 09:55 | disposition home or self-care (01) | DRG 772 ==
LOC: YASAS 11:41 → Y3E 16:59
PROVIDERS: ADMIT Psychiatry & Neurology Psychiatry; ATTEND Psychiatry & Neurology Psychiatry
PROC: HZ42ZZZ Group Counseling for Substance Abuse Treatment, Cognitive-Behavioral (ICD-10-PCS; principal; 2016-12-29)
DX: F10.20 Alcohol dependence, uncomplicated (principal); F14.20 Cocaine dependence, uncomplicated; F17.213 Nicotine dependence, cigarettes, with withdrawal; F25.9 Schizoaffective disorder, unspecified; I10 Essential (primary) hypertension; E78.5 Hyperlipidemia, unspecified
CPT/HCPCS: 36415; 80053; 81003; 81015; 85027; 86593; 87389; 90670; 93005; 93010

== ENCOUNTER 2017-04-25 15:00 | Inpatient (IN) | payer OTHER ==
[2017-04-25 16:53] VITALS: BMI 25.9
--- NOTE | 2017-04-25 19:05 | HP ---
Admission [facility] Chief Complaint: SEEKING REHAB SERVICES Allergies/Adverse Reactions: Allergies Allergy/AdvReac Type Severity Reaction Status Date / Time No Known Allergies Allergy Verified 04/25/17 17:02 History of Present Illness: 61 Y.O. WOMAN WITH A HISTORY OF DRUG AND ALCOHOL DEPENDENCE IS HERE SEEKING REHAB SERVICES. SHE LAST COMPLETED REHAB HERE IN 01/2017. SHE REPORTS HER LONGEST PERIOD SOBER HAS BEEN 2 YEARS. Exam Limitations: No Limitations - Ebola screening Have you traveled outside of the country in the last 21 days: No Have you had contact with anyone from an Ebola affected area: No Have you been sick,other than usual withdrawal symptoms: No - Review of Systems Constitutional: No Symptoms Reported EENT: reports: No Symptoms Reported Respiratory: reports: No Symptoms reported Cardiac: reports: No Symptoms Reported GI: reports: No Symptoms Reported : reports: No Symptoms Reported Musculoskeletal: reports: No Symptoms Reported Integumentary: reports: No Symptoms Reported Neuro: reports: No Symptoms reported Endocrine: reports: No Symptoms Reported Hematology: reports: No Symptoms Reported Psychiatric: reports: Judgement Intact, Mood/Affect Appropiate, Orientated x3 Other Systems: Reviewed and Negative Patient History - Patient Medical History Hx Anemia: No Hx Asthma: No Hx Chronic Obstructive Pulmonary Disease (COPD): No Hx Cancer: No Hx Cardiac Disorders: No Hx Congestive Heart Failure: No Hx Hypertension: Yes Hx Hypercholesterolemia: Yes Hx Pacemaker: No HX Cerebrovascular Accident: No Hx Seizures: No Hx Dementia: No Hx Diabetes: No Hx Gastrointestinal Disorders: No Hx Liver Disease: No Hx Genitourinary Disorders: No Hx Sexually Transmitted Disorders: No Hx Renal Disease (ESRD): No Hx Thyroid Disease: No Hx Human Immunodeficiency Virus (HIV): No Hx Hepatitis C: No Hx Depression: No Hx Suicide Attempt: No Hx Bipolar Disorder: No Hx Schizophrenia: Yes (schizophrenia) - Patient Surgical History Past Surgical History: Yes Hx Neurologic Surgery: No Hx Cataract Extraction: No Hx Cardiac Surgery: No Hx Lung Surgery: No Hx Breast Surgery: No Hx Breast Biopsy: Yes (mastectomy, left breast ca /reconstructive xs in 2008) Hx Abdominal Surgery: No Hx Appendectomy: No Hx Cholecystectomy: No Hx Genitourinary Surgery: No Hx Section: No Hx Orthopedic Surgery: No Anesthesia Reaction: No - PPD History Previous Implant?: Yes Documented Results: Negative w/proof Implanted On Prior [facility] Admission?: Yes Date: 12/31/16 Results: 0 mm PPD to be Administered?: Yes - Reproductive History Patient is a Female of Child Bearing Age (11 -55 yrs old): No Patient : No - Smoking Cessation Smoking history: Current every day smoker Have you smoked in the past 12 months: Yes Aproximately how many cigarettes per day: 3 Cigars Per Day: 0 Hx Chewing Tobacco Use: No Initiated information on smoking cessation: Yes 'Breaking Loose' booklet given: 04/25/17 - Substance & Tx. History Hx Alcohol Use: Yes Hx Substance Use: Yes Substance Use Type: Alcohol, Cocaine Hx Substance Use Treatment: Yes (REHAB HERE IN 01/2017; DETOX 2 YEARS AGO ) - Substances Abused Crack Route: Smoking Frequency: 1-2 times per week Amount used: $20 Age of first use: 47 Date of Last Use: 04/17/17 Alcohol-beer Route: Oral Frequency: 1-2 times per week Amount used: 2 (12 oz.) Age of first use: 47 Date of Last Use: 04/25/17 Family Disease History - Family Disease History Family Disease History: Heart Disease: Sister () Admission Physical Exam S - Vital Signs Vital Signs: Vital Signs - 24 hr 04/25/17 16:51 Temperature 97.6 F Pulse Rate 81 Respiratory 18 Rate Blood Pressure 115/68 - Physical General Appearance: Yes: No Apparent Distress, Nourished, Appropriately Dressed HEENTM: Yes: Hearing grossly Normal, Normocephalic, Normal Voice Respiratory: Yes: Chest Non-Tender, Lungs Clear, Normal Breath Sounds, No Respiratory Distress, No Accessory Muscle Use Neck: Yes: No masses,lesions,Nodules, Trachea in good position Breast: Yes: Breast Exam Deferred Cardiology: Yes: Regular Rhythm, Regular Rate Abdominal: Yes: Normal Bowel Sounds, Non Tender, Flat, Soft Genitourinary: Yes: Other (NO COMPLAINTS REPORTED) Back: Yes: Normal Inspection Musculoskeletal: Yes: full range of Motion, Gait Steady Extremities: Yes: Normal Capillary Refill, Normal Inspection, Normal Range of Motion, Non-Tender Neurological: Yes: copier technician II-XII NML intact, Fully Oriented, Alert, Motor Strength 5/5, Normal Mood/Affect, Normal Response Integumentary: Yes: Normal Color, Dry, Warm Lymphatic: Yes: Within Normal Limits - Diagnostic (1) Alcohol dependence with uncomplicated withdrawal Current Visit: Yes Status: Chronic (2) Cocaine dependence, uncomplicated Current Visit: Yes Status: Chronic (3) Hyperlipidemia Current Visit: Yes Status: Chronic Qualifiers: Hyperlipidemia type: pure hypercholesterolemia Qualified Code(s): E78.00 - Pure hypercholesterolemia, unspecified; E78.0 - Pure hypercholesterolemia (4) Hypertension Current Visit: Yes Status: Chronic Qualifiers: Hypertension type: essential hypertension Qualified Code(s): I10 - Essential (primary) hypertension (5) Nicotine dependence Current Visit: Yes Status: Chronic Qualifiers: Nicotine product type: cigarettes Substance use status: in withdrawal Qualified Code(s): F17.213 - Nicotine dependence, cigarettes, with withdrawal Cleared for Admission [facility] - Detox or Rehab [facility] Level of Care: Observation Bed Claeared for Rehab Admission: Yes [facility] Breath Alcohol Content Breath Alcohol Content: 0 Urine Drug Screen - Results Drug Screen Negative: No Urine Drug Screen Results: DIPAK-Cocaine
[2017-04-25] MEDS ORDERED: P-EPHED 60MG/TRIPROLIDI 2.5MG TABLET PO PRN (19:10)
[2017-04-25] MEDS ORDERED: ACETAMINOPHEN 325 MG TABLET (FP) PO PRN (19:10)
[2017-04-25] MEDS ORDERED: NICOTINE POLACRILEX 2 MG GUM BUC PRN (19:10)
[2017-04-25] MEDS ORDERED: MAG HYDROX/AL HYDROX/SIMETH 30 ML UNIT-DOSE CUP PO PRN (19:10)
[2017-04-25] MEDS ORDERED: diphenhydrAMINE HCL 50 MG CAPSULE PO PRN (19:10)
[2017-04-25] MEDS ORDERED: hydrOXYzine PAMOATE 50 MG CAPSULE (FP) PO PRN (19:10)
[2017-04-25] MEDS ORDERED: guaiFENesin/D-METHORPHAN HB 10 ML UNIT-DOSE CUPS PO PRN (19:10)
[2017-04-25] MEDS ORDERED: MENTHOL/PHENOL 1 EACH UD MM PRN (19:10)
[2017-04-25] MEDS ORDERED: IBUPROFEN 400 MG TABLET (FP) PO PRN (19:10)
[2017-04-25] MEDS ORDERED: LOPERAMIDE HCL 2 MG CAPSULE PO PRN (19:10)
[2017-04-25] MEDS ORDERED: MAGNESIUM CITRATE 300 ML BOTTLE PO PRN (19:10)
[2017-04-25] MEDS ORDERED: MAGNESIUM HYDROX 2400MG/30ML ORAL SUSPENSION 30 ML CUP PO PRN (19:10)
[2017-04-25] MEDS: PATIENT'S OWN MEDICATION (NON-FORMULARY) (Simvastatin 20 MG) PO SCH (22:45)
[2017-04-25] MEDS: THIAMINE HCL 100 MG TABLET (FP) PO SCH (22:50)
[2017-04-25 23:35] LABS: URINE APPEARANCE SLCLOUDY; URINE BILIRUBIN NEGATIVE (NEGATIVE); URINE BLOOD NEGATIVE (NEGATIVE); URINE COLOR LTYELLOW; URINE GLUCOSE (UA) NEGATIVE (NEGATIVE); URINE KETONE NEGATIVE (NEGATIVE); URINE LEUK ESTERASE TRACE (NEGATIVE); URINE NITRITE NEGATIVE (NEGATIVE); URINE PROTEIN NEGATIVE (NEGATIVE); URINE UROBILINOGEN NEGATIVE mg/dL (0.2-1.0)
[2017-04-26 00:58] LABS: URINE BACTERIA FEW /hpf (NONE SEEN); URINE HYALINE CAST 1 /lpf; URINE MUCUS RARE; URINE RBC 3 /hpf (0-3); URINE WBC 8 /hpf (3-5)
[2017-04-26] MEDS: NICOTINE 14 MG/24 HOURS TOPICAL PATCH TD SCH (09:47)
[2017-04-26] MEDS: ASPIRIN 81 MG CHEWABLE TABLETS PO SCH (09:47)
[2017-04-26] MEDS: PRENATAL VITAMINS W/ FOLIC ACID TABLET (FP) PO SCH (09:47)
[2017-04-26 10:05] LABS: CALCIUM 8.7 mg/dL (8.5-10.1)
[2017-04-26 10:12] LABS: ALBUMIN 3.1 g/dl (3.4-5.0); ALK PHOS 72 U/L (45-117); ANION GAP 7 (8-16); BILIRUBIN,TOTAL 0.4 mg/dL (0.2-1.0); CO2 28 mmol/L (21-32); CREATININE 0.6 mg/dL (0.55-1.02); GLUCOSE,RANDOM 130 mg/dL (74-106); SGOT/AST 13 U/L (15-37); SGPT/ALT 16 U/L (12-78); TOT PROT 6.9 g/dl (6.4-8.2)
[2017-04-26 10:14] LABS: MCH 32.9 pg (25.7-33.7); MCHC 34.4 g/dl (32.0-36.0); MEAN CELL VOLUME 95.7 fl (80-96); MEAN PLT VOLUME 8.2 fl (7.5-11.1); PLATELET COUNT 255 K/MM3 (134-434); RDW 14.2 % (11.6-15.6); WHITE BLOOD COUNT 6.5 K/mm3 (4.0-10.0)
[2017-04-26] MEDS: CYANOCOBALAMIN (VITAMIN B-12) 100 MCG TABLET PO SCH (10:36)
--- NOTE | 2017-04-26 11:59 | HP ---
Psychiatrist Admission - Data Date of interview: 04/26/17 Admission source: [facility] Identifying data: This is the second admission to [address] [place] [address] for this 61 yo AA female residing in [place] [facility],supported by [facility]. Medical History: Significanr for HTN,Hyperlipidemia,H/O Breast Cancer. Psychiatric History: First contact with psychiatrist was in 1984 after ffirst psychotic episode with auditory hallucinations,agiyation,anxiety.patient has been hospitalized to [facility] .She was dx with Schizoaffective disorder,placed on [place] with good response.No more psychiatric admissions,no history of suicidal attempts.Patient is under psychiatric care at [facility] clinic in the [place].Current medications:Risperdal 0,5 mg po hs,Trazodone 100 mg po hs,Cogentin 1 mg po hs and Topamax 50 mg po hs. Physical/Sexual Abuse/Trauma History: denies Vital Signs: Vital Signs - 24 hr 04/25/17 04/26/17 04/26/17 16:51 00:30 07:18 Temperature 97.6 F 97.2 F L Pulse Rate 81 65 Respiratory 18 16 18 Rate Blood Pressure 115/68 114/76 04/26/17 09:00 Temperature 98.0 F Pulse Rate 64 Respiratory 18 Rate Blood Pressure 118/75 Allergies/Adverse Reactions: Allergies Allergy/AdvReac Type Severity Reaction Status Date / Time No Known Allergies Allergy Verified 04/25/17 17:02 Date of last physical exam: 04/25/17 Concur with the findings of this exam: Yes - Substance Abuse/Tx History Hx Alcohol Use: Yes (reports drnking since 2008,6 packs daily) Hx Substance Use: Yes (cocaine since 2008,$20 daily) Substance Use Type: Alcohol, Cocaine Hx Substance Use Treatment: Yes (completed this program in December 2016) - Admission Criteria Previous failed treatment: Yes Poor recovery environment: Yes Comorbidities: Yes Lacks judgement: Yes Mental Status Exam - Mental Status Exam Alert and Oriented to: Time, Place, Person Cognitive Function: Grossly Intact Patient Appearance: Unkempt Mood: Euthymic Affect: Mood Congruent Patient Behavior: Cooperative Speech Pattern: Clear Voice Loudness: Normal Thought Process: Goal Oriented Thought Disorder: Being Controlled Hallucinations: Denies Suicidal Ideation: Denies Homicidal Ideation: Denies Insight/Judgement: Fair Sleep: Fair Appetite: Good Muscle strength/Tone: Normal Gait/Station: Normal Psychiatric Findings - Problem List ([place] 1, 2,3) (1) Hyperlipidemia Current Visit: Yes Status: Chronic Qualifiers: Hyperlipidemia type: pure hypercholesterolemia Qualified Code(s): E78.00 - Pure hypercholesterolemia, unspecified; E78.0 - Pure hypercholesterolemia (2) Hypertension Current Visit: Yes Status: Chronic Qualifiers: Hypertension type: essential hypertension Qualified Code(s): I10 - Essential (primary) hypertension (3) Nicotine dependence Current Visit: Yes Status: Chronic Qualifiers: Nicotine product type: cigarettes Substance use status: in withdrawal Qualified Code(s): F17.213 - Nicotine dependence, cigarettes, with withdrawal (4) Schizoaffective disorder Current Visit: Yes Status: Chronic (5) Alcohol dependence Current Visit: Yes Status: Chronic (6) Cocaine dependence Current Visit: Yes Status: Chronic - Initial Treatment Plan Initial Treatment Plan: Continue current medications as per plan. Will monitor progress.
[2017-04-26 12:27] LABS: HIV 1 & 2 AB NEGATIVE; HIV 1 AGp24 NEGATIVE
--- NOTE | 2017-04-26 12:30 | EKG ---
Test Reason : Blood Pressure : / mmHG Vent. Rate : 064 BPM Atrial Rate : 064 BPM P-R Int : 224 ms QRS Dur : 094 ms QT Int : 428 ms P-R-T Axes : 061 070 012 degrees QTc Int : 441 ms SINUS RHYTHM WITH 1ST DEGREE A-V BLOCK INCOMPLETE RIGHT BUNDLE BRANCH BLOCK BORDERLINE ECG WHEN COMPARED WITH ECG OF 30-DEC-2016 08:38, NO SIGNIFICANT CHANGE WAS FOUND Confirmed by BRANDYN MORIN, AARON ([id number]) on 04/26/2017 12:30:30 PM Referred By: Kendy Givens Confirmed By:AARON AHUMADA MD
[2017-04-26] MEDS: THIAMINE HCL 100 MG TABLET (FP) PO SCH (21:19)
[2017-04-26] MEDS: TOPIRAMATE 25 MG TABLET (FP) PO SCH (21:20)
[2017-04-26] MEDS: PATIENT'S OWN MEDICATION (NON-FORMULARY) (Simvastatin 20 MG) PO SCH (21:21)
[2017-04-26] MEDS: BENZTROPINE MESYLATE 1 MG TABLET (FP) PO SCH (21:22)
[2017-04-26] MEDS: risperiDONE 0.5 MG TABLET (FP) PO SCH (21:22)
[2017-04-26] MEDS: traZODone HCL 100 MG TABLET (FP) PO SCH (21:22)
[2017-04-26] MEDS ORDERED: PT OWN MED DRAWER 7, Y5N ONE (21:34)
[2017-04-27] MEDS: ASPIRIN 81 MG CHEWABLE TABLETS PO SCH (09:47)
[2017-04-27] MEDS: NICOTINE 14 MG/24 HOURS TOPICAL PATCH TD SCH (09:47)
[2017-04-27] MEDS: CYANOCOBALAMIN (VITAMIN B-12) 100 MCG TABLET PO SCH (09:48)
[2017-04-27] MEDS: PRENATAL VITAMINS W/ FOLIC ACID TABLET (FP) PO SCH (09:48)
[2017-04-27] MEDS: THIAMINE HCL 100 MG TABLET (FP) PO SCH (21:08)
[2017-04-27] MEDS: BENZTROPINE MESYLATE 1 MG TABLET (FP) PO SCH (21:08)
[2017-04-27] MEDS: risperiDONE 0.5 MG TABLET (FP) PO SCH (21:08)
[2017-04-27] MEDS: traZODone HCL 100 MG TABLET (FP) PO SCH (21:08)
[2017-04-27] MEDS: TOPIRAMATE 25 MG TABLET (FP) PO SCH (21:08)
[2017-04-27] MEDS: PATIENT'S OWN MEDICATION (NON-FORMULARY) (Simvastatin 20 MG) PO SCH (21:09)
[2017-04-28] MEDS: ASPIRIN 81 MG CHEWABLE TABLETS PO SCH (09:38)
[2017-04-28] MEDS: CYANOCOBALAMIN (VITAMIN B-12) 100 MCG TABLET PO SCH (09:39)
[2017-04-28] MEDS: PRENATAL VITAMINS W/ FOLIC ACID TABLET (FP) PO SCH (09:39)
[2017-04-28] MEDS: NICOTINE 14 MG/24 HOURS TOPICAL PATCH TD SCH (09:39)
[2017-04-28] MEDS: TOPIRAMATE 25 MG TABLET (FP) PO SCH (21:45)
[2017-04-28] MEDS: PATIENT'S OWN MEDICATION (NON-FORMULARY) (Simvastatin 20 MG) PO SCH (21:45)
[2017-04-28] MEDS: THIAMINE HCL 100 MG TABLET (FP) PO SCH (21:46)
[2017-04-28] MEDS: traZODone HCL 100 MG TABLET (FP) PO SCH (21:46)
[2017-04-28] MEDS: BENZTROPINE MESYLATE 1 MG TABLET (FP) PO SCH (21:46)
[2017-04-28] MEDS: risperiDONE 0.5 MG TABLET (FP) PO SCH (21:46)
[2017-04-29] MEDS: PRENATAL VITAMINS W/ FOLIC ACID TABLET (FP) PO SCH (10:03)
[2017-04-29] MEDS: NICOTINE 14 MG/24 HOURS TOPICAL PATCH TD SCH (10:03)
[2017-04-29] MEDS: ASPIRIN 81 MG CHEWABLE TABLETS PO SCH (10:03)
[2017-04-29] MEDS: CYANOCOBALAMIN (VITAMIN B-12) 100 MCG TABLET PO SCH (10:03)
[2017-04-29] MEDS: risperiDONE 0.5 MG TABLET (FP) PO SCH (21:15)
[2017-04-29] MEDS: traZODone HCL 100 MG TABLET (FP) PO SCH (21:15)
[2017-04-29] MEDS: TOPIRAMATE 25 MG TABLET (FP) PO SCH (21:15)
[2017-04-29] MEDS: BENZTROPINE MESYLATE 1 MG TABLET (FP) PO SCH (21:15)
[2017-04-29] MEDS: PATIENT'S OWN MEDICATION (NON-FORMULARY) (Simvastatin 20 MG) PO SCH (21:16)
[2017-04-29] MEDS: THIAMINE HCL 100 MG TABLET (FP) PO SCH (21:16)
[2017-04-29] MEDS ORDERED: PT OWN MED DRAWER 7, Y5N ONE (23:00)
[2017-04-30] MEDS ORDERED: PT OWN MED DRAWER 7, Y5N ONE ×2 (00:31→19:44)
[2017-04-30] MEDS: NICOTINE 14 MG/24 HOURS TOPICAL PATCH TD SCH (09:27)
[2017-04-30] MEDS: CYANOCOBALAMIN (VITAMIN B-12) 100 MCG TABLET PO SCH (09:28)
[2017-04-30] MEDS: PRENATAL VITAMINS W/ FOLIC ACID TABLET (FP) PO SCH (09:28)
[2017-04-30] MEDS: ASPIRIN 81 MG CHEWABLE TABLETS PO SCH (09:28)
[2017-04-30] MEDS: traZODone HCL 100 MG TABLET (FP) PO SCH (21:12)
[2017-04-30] MEDS: BENZTROPINE MESYLATE 1 MG TABLET (FP) PO SCH (21:12)
[2017-04-30] MEDS: TOPIRAMATE 25 MG TABLET (FP) PO SCH (21:13)
[2017-04-30] MEDS: THIAMINE HCL 100 MG TABLET (FP) PO SCH (21:13)
[2017-04-30] MEDS: PATIENT'S OWN MEDICATION (NON-FORMULARY) (Simvastatin 20 MG) PO SCH (21:14)
[2017-04-30] MEDS: risperiDONE 0.5 MG TABLET (FP) PO SCH (21:14)
[2017-05-01] MEDS: ASPIRIN 81 MG CHEWABLE TABLETS PO SCH (09:41)
[2017-05-01] MEDS: NICOTINE 14 MG/24 HOURS TOPICAL PATCH TD SCH (09:41)
[2017-05-01] MEDS: CYANOCOBALAMIN (VITAMIN B-12) 100 MCG TABLET PO SCH (09:41)
[2017-05-01] MEDS: PRENATAL VITAMINS W/ FOLIC ACID TABLET (FP) PO SCH (09:41)
[2017-05-01] MEDS: traZODone HCL 100 MG TABLET (FP) PO SCH (21:12)
[2017-05-01] MEDS: THIAMINE HCL 100 MG TABLET (FP) PO SCH (21:12)
[2017-05-01] MEDS: BENZTROPINE MESYLATE 1 MG TABLET (FP) PO SCH (21:13)
[2017-05-01] MEDS: risperiDONE 0.5 MG TABLET (FP) PO SCH (21:13)
[2017-05-01] MEDS: PATIENT'S OWN MEDICATION (NON-FORMULARY) (Simvastatin 20 MG) PO SCH (21:13)
[2017-05-01] MEDS: TOPIRAMATE 25 MG TABLET (FP) PO SCH (21:13)
[2017-05-01] MEDS ORDERED: PT OWN MED DRAWER 7, Y5N ONE (21:14)
[2017-05-02] MEDS: NICOTINE 14 MG/24 HOURS TOPICAL PATCH TD SCH (09:41)
[2017-05-02] MEDS: ASPIRIN 81 MG CHEWABLE TABLETS PO SCH (09:42)
[2017-05-02] MEDS: PRENATAL VITAMINS W/ FOLIC ACID TABLET (FP) PO SCH (09:42)
[2017-05-02] MEDS: CYANOCOBALAMIN (VITAMIN B-12) 100 MCG TABLET PO SCH (09:42)
[2017-05-02] MEDS: BENZTROPINE MESYLATE 1 MG TABLET (FP) PO SCH (21:17)
[2017-05-02] MEDS: TOPIRAMATE 25 MG TABLET (FP) PO SCH (21:17)
[2017-05-02] MEDS: THIAMINE HCL 100 MG TABLET (FP) PO SCH (21:17)
[2017-05-02] MEDS: PATIENT'S OWN MEDICATION (NON-FORMULARY) (Simvastatin 20 MG) PO SCH (21:17)
[2017-05-02] MEDS: risperiDONE 0.5 MG TABLET (FP) PO SCH (21:17)
[2017-05-02] MEDS: traZODone HCL 100 MG TABLET (FP) PO SCH (21:17)
[2017-05-03] MEDS: CYANOCOBALAMIN (VITAMIN B-12) 100 MCG TABLET PO SCH (09:55)
[2017-05-03] MEDS: NICOTINE 14 MG/24 HOURS TOPICAL PATCH TD SCH (09:55)
[2017-05-03] MEDS: PRENATAL VITAMINS W/ FOLIC ACID TABLET (FP) PO SCH (09:55)
[2017-05-03] MEDS: ASPIRIN 81 MG CHEWABLE TABLETS PO SCH (09:55)
[2017-05-03] MEDS: TOPIRAMATE 25 MG TABLET (FP) PO SCH (21:12)
[2017-05-03] MEDS: traZODone HCL 100 MG TABLET (FP) PO SCH (21:12)
[2017-05-03] MEDS: BENZTROPINE MESYLATE 1 MG TABLET (FP) PO SCH (21:12)
[2017-05-03] MEDS: THIAMINE HCL 100 MG TABLET (FP) PO SCH (21:12)
[2017-05-03] MEDS: PATIENT'S OWN MEDICATION (NON-FORMULARY) (Simvastatin 20 MG) PO SCH (21:13)
[2017-05-03] MEDS: risperiDONE 0.5 MG TABLET (FP) PO SCH (21:13)
[2017-05-04] MEDS: NICOTINE 14 MG/24 HOURS TOPICAL PATCH TD SCH (09:49)
[2017-05-04] MEDS: PRENATAL VITAMINS W/ FOLIC ACID TABLET (FP) PO SCH (09:49)
[2017-05-04] MEDS: CYANOCOBALAMIN (VITAMIN B-12) 100 MCG TABLET PO SCH (09:49)
[2017-05-04] MEDS: ASPIRIN 81 MG CHEWABLE TABLETS PO SCH (09:49)
[2017-05-04] MEDS ORDERED: PT OWN MED DRAWER 7, Y5N ONE (18:37)
[2017-05-04] MEDS: TOPIRAMATE 25 MG TABLET (FP) PO SCH (21:10)
[2017-05-04] MEDS: risperiDONE 0.5 MG TABLET (FP) PO SCH (21:10)
[2017-05-04] MEDS: THIAMINE HCL 100 MG TABLET (FP) PO SCH (21:10)
[2017-05-04] MEDS: traZODone HCL 100 MG TABLET (FP) PO SCH (21:10)
[2017-05-04] MEDS: BENZTROPINE MESYLATE 1 MG TABLET (FP) PO SCH (21:10)
[2017-05-04] MEDS: PATIENT'S OWN MEDICATION (NON-FORMULARY) (Simvastatin 20 MG) PO SCH (21:11)
[2017-05-05] MEDS: PRENATAL VITAMINS W/ FOLIC ACID TABLET (FP) PO SCH (10:08)
[2017-05-05] MEDS: ASPIRIN 81 MG CHEWABLE TABLETS PO SCH (10:08)
[2017-05-05] MEDS: CYANOCOBALAMIN (VITAMIN B-12) 100 MCG TABLET PO SCH (10:08)
[2017-05-05] MEDS: NICOTINE 14 MG/24 HOURS TOPICAL PATCH TD SCH (10:08)
[2017-05-05] MEDS: traZODone HCL 100 MG TABLET (FP) PO SCH (21:16)
[2017-05-05] MEDS: risperiDONE 0.5 MG TABLET (FP) PO SCH (21:16)
[2017-05-05] MEDS: BENZTROPINE MESYLATE 1 MG TABLET (FP) PO SCH (21:16)
[2017-05-05] MEDS: THIAMINE HCL 100 MG TABLET (FP) PO SCH (21:16)
[2017-05-05] MEDS: TOPIRAMATE 25 MG TABLET (FP) PO SCH (21:16)
[2017-05-05] MEDS: PATIENT'S OWN MEDICATION (NON-FORMULARY) (Simvastatin 20 MG) PO SCH (21:17)
[2017-05-06] MEDS: NICOTINE 14 MG/24 HOURS TOPICAL PATCH TD SCH (09:45)
[2017-05-06] MEDS: CYANOCOBALAMIN (VITAMIN B-12) 100 MCG TABLET PO SCH (09:46)
[2017-05-06] MEDS: ASPIRIN 81 MG CHEWABLE TABLETS PO SCH (09:46)
[2017-05-06] MEDS: PRENATAL VITAMINS W/ FOLIC ACID TABLET (FP) PO SCH (09:46)
[2017-05-06] MEDS: risperiDONE 0.5 MG TABLET (FP) PO SCH (21:05)
[2017-05-06] MEDS: TOPIRAMATE 25 MG TABLET (FP) PO SCH (21:05)
[2017-05-06] MEDS: THIAMINE HCL 100 MG TABLET (FP) PO SCH (21:05)
[2017-05-06] MEDS: BENZTROPINE MESYLATE 1 MG TABLET (FP) PO SCH (21:05)
[2017-05-06] MEDS: traZODone HCL 100 MG TABLET (FP) PO SCH (21:05)
[2017-05-06] MEDS: PATIENT'S OWN MEDICATION (NON-FORMULARY) (Simvastatin 20 MG) PO SCH (21:06)
[2017-05-07] MEDS: NICOTINE 14 MG/24 HOURS TOPICAL PATCH TD SCH (09:32)
[2017-05-07] MEDS: ASPIRIN 81 MG CHEWABLE TABLETS PO SCH (09:32)
[2017-05-07] MEDS: CYANOCOBALAMIN (VITAMIN B-12) 100 MCG TABLET PO SCH (09:33)
[2017-05-07] MEDS: PRENATAL VITAMINS W/ FOLIC ACID TABLET (FP) PO SCH (09:33)
[2017-05-07] MEDS: TOPIRAMATE 25 MG TABLET (FP) PO SCH (21:03)
[2017-05-07] MEDS: risperiDONE 0.5 MG TABLET (FP) PO SCH (21:04)
[2017-05-07] MEDS: PATIENT'S OWN MEDICATION (NON-FORMULARY) (Simvastatin 20 MG) PO SCH (21:04)
[2017-05-07] MEDS: traZODone HCL 100 MG TABLET (FP) PO SCH (21:04)
[2017-05-07] MEDS: THIAMINE HCL 100 MG TABLET (FP) PO SCH (21:04)
[2017-05-07] MEDS: BENZTROPINE MESYLATE 1 MG TABLET (FP) PO SCH (21:04)
[2017-05-08] MEDS: NICOTINE 14 MG/24 HOURS TOPICAL PATCH TD SCH (09:59)
[2017-05-08] MEDS: ASPIRIN 81 MG CHEWABLE TABLETS PO SCH (10:00)
[2017-05-08] MEDS: CYANOCOBALAMIN (VITAMIN B-12) 100 MCG TABLET PO SCH (10:00)
[2017-05-08] MEDS: PRENATAL VITAMINS W/ FOLIC ACID TABLET (FP) PO SCH (10:00)
[2017-05-08] MEDS ORDERED: traZODone HCL 50 MG TABLET (FP) ONE (19:34)
[2017-05-08] MEDS: BENZTROPINE MESYLATE 1 MG TABLET (FP) PO SCH (21:11)
[2017-05-08] MEDS: risperiDONE 0.5 MG TABLET (FP) PO SCH (21:11)
[2017-05-08] MEDS: THIAMINE HCL 100 MG TABLET (FP) PO SCH (21:11)
[2017-05-08] MEDS: traZODone HCL 100 MG TABLET (FP) PO SCH (21:12)
[2017-05-08] MEDS: PATIENT'S OWN MEDICATION (NON-FORMULARY) (Simvastatin 20 MG) PO SCH (21:12)
[2017-05-08] MEDS: TOPIRAMATE 25 MG TABLET (FP) PO SCH (21:12)
[2017-05-09] MEDS: NICOTINE 14 MG/24 HOURS TOPICAL PATCH TD SCH (09:50)
[2017-05-09] MEDS: CYANOCOBALAMIN (VITAMIN B-12) 100 MCG TABLET PO SCH (09:51)
[2017-05-09] MEDS: PRENATAL VITAMINS W/ FOLIC ACID TABLET (FP) PO SCH (09:51)
[2017-05-09] MEDS: ASPIRIN 81 MG CHEWABLE TABLETS PO SCH (09:51)
[2017-05-09] MEDS: THIAMINE HCL 100 MG TABLET (FP) PO SCH (21:18)
[2017-05-09] MEDS: TOPIRAMATE 25 MG TABLET (FP) PO SCH (21:18)
[2017-05-09] MEDS: risperiDONE 0.5 MG TABLET (FP) PO SCH (21:18)
[2017-05-09] MEDS: BENZTROPINE MESYLATE 1 MG TABLET (FP) PO SCH (21:18)
[2017-05-09] MEDS: PATIENT'S OWN MEDICATION (NON-FORMULARY) (Simvastatin 20 MG) PO SCH (21:18)
[2017-05-09] MEDS: traZODone HCL 100 MG TABLET (FP) PO SCH (21:18)
[2017-05-10] MEDS: PRENATAL VITAMINS W/ FOLIC ACID TABLET (FP) PO SCH (09:42)
[2017-05-10] MEDS: CYANOCOBALAMIN (VITAMIN B-12) 100 MCG TABLET PO SCH (09:42)
[2017-05-10] MEDS: NICOTINE 14 MG/24 HOURS TOPICAL PATCH TD SCH (09:42)
[2017-05-10] MEDS: ASPIRIN 81 MG CHEWABLE TABLETS PO SCH (09:42)
[2017-05-10] MEDS: traZODone HCL 100 MG TABLET (FP) PO SCH (21:15)
[2017-05-10] MEDS: THIAMINE HCL 100 MG TABLET (FP) PO SCH (21:15)
[2017-05-10] MEDS: risperiDONE 0.5 MG TABLET (FP) PO SCH (21:15)
[2017-05-10] MEDS: BENZTROPINE MESYLATE 1 MG TABLET (FP) PO SCH (21:15)
[2017-05-10] MEDS: TOPIRAMATE 25 MG TABLET (FP) PO SCH (21:15)
[2017-05-10] MEDS: PATIENT'S OWN MEDICATION (NON-FORMULARY) (Simvastatin 20 MG) PO SCH (21:16)
[2017-05-11] MEDS: ASPIRIN 81 MG CHEWABLE TABLETS PO SCH (09:29)
[2017-05-11] MEDS: PRENATAL VITAMINS W/ FOLIC ACID TABLET (FP) PO SCH (09:30)
[2017-05-11] MEDS: NICOTINE 14 MG/24 HOURS TOPICAL PATCH TD SCH (09:30)
[2017-05-11] MEDS: CYANOCOBALAMIN (VITAMIN B-12) 100 MCG TABLET PO SCH (09:30)
[2017-05-11] MEDS: risperiDONE 0.5 MG TABLET (FP) PO SCH (21:14)
[2017-05-11] MEDS: TOPIRAMATE 25 MG TABLET (FP) PO SCH (21:14)
[2017-05-11] MEDS: traZODone HCL 100 MG TABLET (FP) PO SCH (21:14)
[2017-05-11] MEDS: PATIENT'S OWN MEDICATION (NON-FORMULARY) (Simvastatin 20 MG) PO SCH (21:14)
[2017-05-11] MEDS: BENZTROPINE MESYLATE 1 MG TABLET (FP) PO SCH (21:14)
[2017-05-11] MEDS: THIAMINE HCL 100 MG TABLET (FP) PO SCH (21:15)
[2017-05-12] MEDS: PRENATAL VITAMINS W/ FOLIC ACID TABLET (FP) PO SCH (09:48)
[2017-05-12] MEDS: ASPIRIN 81 MG CHEWABLE TABLETS PO SCH (09:48)
[2017-05-12] MEDS: NICOTINE 14 MG/24 HOURS TOPICAL PATCH TD SCH (09:48)
[2017-05-12] MEDS: CYANOCOBALAMIN (VITAMIN B-12) 100 MCG TABLET PO SCH (09:48)
[2017-05-12] MEDS: TOPIRAMATE 25 MG TABLET (FP) PO SCH (21:20)
[2017-05-12] MEDS: risperiDONE 0.5 MG TABLET (FP) PO SCH (21:20)
[2017-05-12] MEDS: BENZTROPINE MESYLATE 1 MG TABLET (FP) PO SCH (21:20)
[2017-05-12] MEDS: PATIENT'S OWN MEDICATION (NON-FORMULARY) (Simvastatin 20 MG) PO SCH (21:20)
[2017-05-12] MEDS: THIAMINE HCL 100 MG TABLET (FP) PO SCH (21:20)
[2017-05-12] MEDS: traZODone HCL 100 MG TABLET (FP) PO SCH (21:20)
[2017-05-13] MEDS: NICOTINE 14 MG/24 HOURS TOPICAL PATCH TD SCH (09:36)
[2017-05-13] MEDS: PRENATAL VITAMINS W/ FOLIC ACID TABLET (FP) PO SCH (09:37)
[2017-05-13] MEDS: ASPIRIN 81 MG CHEWABLE TABLETS PO SCH (09:37)
[2017-05-13] MEDS: CYANOCOBALAMIN (VITAMIN B-12) 100 MCG TABLET PO SCH (09:37)
[2017-05-13] MEDS: risperiDONE 0.5 MG TABLET (FP) PO SCH (21:17)
[2017-05-13] MEDS: BENZTROPINE MESYLATE 1 MG TABLET (FP) PO SCH (21:17)
[2017-05-13] MEDS: traZODone HCL 100 MG TABLET (FP) PO SCH (21:17)
[2017-05-13] MEDS: TOPIRAMATE 25 MG TABLET (FP) PO SCH (21:17)
[2017-05-13] MEDS: PATIENT'S OWN MEDICATION (NON-FORMULARY) (Simvastatin 20 MG) PO SCH (21:18)
[2017-05-13] MEDS: THIAMINE HCL 100 MG TABLET (FP) PO SCH (22:37)
[2017-05-14] MEDS: NICOTINE 14 MG/24 HOURS TOPICAL PATCH TD SCH (09:36)
[2017-05-14] MEDS: CYANOCOBALAMIN (VITAMIN B-12) 100 MCG TABLET PO SCH (09:36)
[2017-05-14] MEDS: PRENATAL VITAMINS W/ FOLIC ACID TABLET (FP) PO SCH (09:36)
[2017-05-14] MEDS: ASPIRIN 81 MG CHEWABLE TABLETS PO SCH (09:36)
[2017-05-14] MEDS: THIAMINE HCL 100 MG TABLET (FP) PO SCH (21:37)
[2017-05-14] MEDS ORDERED: PT OWN MED DRAWER 7, Y5N ONE (21:37)
[2017-05-14] MEDS: TOPIRAMATE 25 MG TABLET (FP) PO SCH (21:38)
[2017-05-14] MEDS: traZODone HCL 100 MG TABLET (FP) PO SCH (21:38)
[2017-05-14] MEDS: BENZTROPINE MESYLATE 1 MG TABLET (FP) PO SCH (21:38)
[2017-05-14] MEDS: risperiDONE 0.5 MG TABLET (FP) PO SCH (21:38)
[2017-05-14] MEDS: PATIENT'S OWN MEDICATION (NON-FORMULARY) (Simvastatin 20 MG) PO SCH (21:39)
[2017-05-15] MEDS: NICOTINE 14 MG/24 HOURS TOPICAL PATCH TD SCH (09:54)
[2017-05-15] MEDS: PRENATAL VITAMINS W/ FOLIC ACID TABLET (FP) PO SCH (09:54)
[2017-05-15] MEDS: CYANOCOBALAMIN (VITAMIN B-12) 100 MCG TABLET PO SCH (09:54)
[2017-05-15] MEDS: ASPIRIN 81 MG CHEWABLE TABLETS PO SCH (09:54)
[2017-05-15] MEDS: TOPIRAMATE 25 MG TABLET (FP) PO SCH (21:13)
[2017-05-15] MEDS: THIAMINE HCL 100 MG TABLET (FP) PO SCH (21:13)
[2017-05-15] MEDS: traZODone HCL 100 MG TABLET (FP) PO SCH (21:13)
[2017-05-15] MEDS: BENZTROPINE MESYLATE 1 MG TABLET (FP) PO SCH (21:13)
[2017-05-15] MEDS: risperiDONE 0.5 MG TABLET (FP) PO SCH (21:14)
[2017-05-15] MEDS: PATIENT'S OWN MEDICATION (NON-FORMULARY) (Simvastatin 20 MG) PO SCH (21:14)
[2017-05-16] MEDS: CYANOCOBALAMIN (VITAMIN B-12) 100 MCG TABLET PO SCH (09:49)
[2017-05-16] MEDS: PRENATAL VITAMINS W/ FOLIC ACID TABLET (FP) PO SCH (09:49)
[2017-05-16] MEDS: ASPIRIN 81 MG CHEWABLE TABLETS PO SCH (09:49)
[2017-05-16] MEDS: NICOTINE 14 MG/24 HOURS TOPICAL PATCH TD SCH (09:50)
[2017-05-16] MEDS: TOPIRAMATE 25 MG TABLET (FP) PO SCH (21:12)
[2017-05-16] MEDS: risperiDONE 0.5 MG TABLET (FP) PO SCH (21:12)
[2017-05-16] MEDS: BENZTROPINE MESYLATE 1 MG TABLET (FP) PO SCH (21:13)
[2017-05-16] MEDS: PATIENT'S OWN MEDICATION (NON-FORMULARY) (Simvastatin 20 MG) PO SCH (21:13)
[2017-05-16] MEDS: THIAMINE HCL 100 MG TABLET (FP) PO SCH (21:13)
[2017-05-16] MEDS: traZODone HCL 100 MG TABLET (FP) PO SCH (21:13)
[2017-05-17] MEDS: CYANOCOBALAMIN (VITAMIN B-12) 100 MCG TABLET PO SCH (09:43)
[2017-05-17] MEDS: PRENATAL VITAMINS W/ FOLIC ACID TABLET (FP) PO SCH (09:43)
[2017-05-17] MEDS: ASPIRIN 81 MG CHEWABLE TABLETS PO SCH (09:43)
[2017-05-17] MEDS: NICOTINE 14 MG/24 HOURS TOPICAL PATCH TD SCH (09:43)
[2017-05-17] MEDS: risperiDONE 0.5 MG TABLET (FP) PO SCH (21:11)
[2017-05-17] MEDS: THIAMINE HCL 100 MG TABLET (FP) PO SCH (21:11)
[2017-05-17] MEDS: traZODone HCL 100 MG TABLET (FP) PO SCH (21:11)
[2017-05-17] MEDS: TOPIRAMATE 25 MG TABLET (FP) PO SCH (21:11)
[2017-05-17] MEDS: BENZTROPINE MESYLATE 1 MG TABLET (FP) PO SCH (21:11)
[2017-05-17] MEDS: PATIENT'S OWN MEDICATION (NON-FORMULARY) (Simvastatin 20 MG) PO SCH (21:12)
[2017-05-18] MEDS: ASPIRIN 81 MG CHEWABLE TABLETS PO SCH (09:50)
[2017-05-18] MEDS: PRENATAL VITAMINS W/ FOLIC ACID TABLET (FP) PO SCH (09:50)
[2017-05-18] MEDS: CYANOCOBALAMIN (VITAMIN B-12) 100 MCG TABLET PO SCH (09:50)
[2017-05-18] MEDS: NICOTINE 14 MG/24 HOURS TOPICAL PATCH TD SCH (09:51)
[2017-05-18] MEDS: traZODone HCL 100 MG TABLET (FP) PO SCH (21:11)
[2017-05-18] MEDS: BENZTROPINE MESYLATE 1 MG TABLET (FP) PO SCH (21:11)
[2017-05-18] MEDS: THIAMINE HCL 100 MG TABLET (FP) PO SCH (21:11)
[2017-05-18] MEDS: risperiDONE 0.5 MG TABLET (FP) PO SCH (21:11)
[2017-05-18] MEDS: TOPIRAMATE 25 MG TABLET (FP) PO SCH (21:11)
[2017-05-18] MEDS: PATIENT'S OWN MEDICATION (NON-FORMULARY) (Simvastatin 20 MG) PO SCH (21:12)
[2017-05-19] MEDS: ASPIRIN 81 MG CHEWABLE TABLETS PO SCH (09:56)
[2017-05-19] MEDS: CYANOCOBALAMIN (VITAMIN B-12) 100 MCG TABLET PO SCH (09:56)
[2017-05-19] MEDS: PRENATAL VITAMINS W/ FOLIC ACID TABLET (FP) PO SCH (09:56)
[2017-05-19] MEDS: NICOTINE 14 MG/24 HOURS TOPICAL PATCH TD SCH (09:56)
[2017-05-19] MEDS: THIAMINE HCL 100 MG TABLET (FP) PO SCH (21:15)
[2017-05-19] MEDS: BENZTROPINE MESYLATE 1 MG TABLET (FP) PO SCH (21:16)
[2017-05-19] MEDS: traZODone HCL 100 MG TABLET (FP) PO SCH (21:16)
[2017-05-19] MEDS: TOPIRAMATE 25 MG TABLET (FP) PO SCH (21:16)
[2017-05-19] MEDS: PATIENT'S OWN MEDICATION (NON-FORMULARY) (Simvastatin 20 MG) PO SCH (21:18)
[2017-05-19] MEDS: risperiDONE 0.5 MG TABLET (FP) PO SCH (21:18)
[2017-05-20] MEDS: NICOTINE 14 MG/24 HOURS TOPICAL PATCH TD SCH (09:34)
[2017-05-20] MEDS: ASPIRIN 81 MG CHEWABLE TABLETS PO SCH (09:34)
[2017-05-20] MEDS: CYANOCOBALAMIN (VITAMIN B-12) 100 MCG TABLET PO SCH (09:35)
[2017-05-20] MEDS: PRENATAL VITAMINS W/ FOLIC ACID TABLET (FP) PO SCH (09:35)
[2017-05-20] MEDS: PATIENT'S OWN MEDICATION (NON-FORMULARY) (Simvastatin 20 MG) PO SCH (21:13)
[2017-05-20] MEDS: risperiDONE 0.5 MG TABLET (FP) PO SCH (21:13)
[2017-05-20] MEDS: THIAMINE HCL 100 MG TABLET (FP) PO SCH (21:13)
[2017-05-20] MEDS: traZODone HCL 100 MG TABLET (FP) PO SCH (21:13)
[2017-05-20] MEDS: BENZTROPINE MESYLATE 1 MG TABLET (FP) PO SCH (21:13)
[2017-05-20] MEDS: TOPIRAMATE 25 MG TABLET (FP) PO SCH (21:13)
[2017-05-21] MEDS: NICOTINE 14 MG/24 HOURS TOPICAL PATCH TD SCH (09:10)
[2017-05-21] MEDS: PRENATAL VITAMINS W/ FOLIC ACID TABLET (FP) PO SCH (09:11)
[2017-05-21] MEDS: CYANOCOBALAMIN (VITAMIN B-12) 100 MCG TABLET PO SCH (09:11)
[2017-05-21] MEDS: ASPIRIN 81 MG CHEWABLE TABLETS PO SCH (09:11)
[2017-05-21] MEDS: BENZTROPINE MESYLATE 1 MG TABLET (FP) PO SCH (21:06)
[2017-05-21] MEDS: PATIENT'S OWN MEDICATION (NON-FORMULARY) (Simvastatin 20 MG) PO SCH (21:06)
[2017-05-21] MEDS: traZODone HCL 100 MG TABLET (FP) PO SCH (21:06)
[2017-05-21] MEDS: risperiDONE 0.5 MG TABLET (FP) PO SCH (21:07)
[2017-05-21] MEDS: TOPIRAMATE 25 MG TABLET (FP) PO SCH (21:07)
[2017-05-21] MEDS: THIAMINE HCL 100 MG TABLET (FP) PO SCH (21:07)
[2017-05-22] MEDS: NICOTINE 14 MG/24 HOURS TOPICAL PATCH TD SCH (09:30)
[2017-05-22] MEDS: CYANOCOBALAMIN (VITAMIN B-12) 100 MCG TABLET PO SCH (09:30)
[2017-05-22] MEDS: ASPIRIN 81 MG CHEWABLE TABLETS PO SCH (09:30)
[2017-05-22] MEDS: PRENATAL VITAMINS W/ FOLIC ACID TABLET (FP) PO SCH (09:30)
--- NOTE | 2017-05-22 15:45 | PN ---
Psychiatric Progress Note Vital Signs: Vital Signs Period Temp Pulse Resp BP Sys/[place] Pulse Ox Last 24 Hr 97.8 F 54 16-18 150/87 Date of Session: 05/22/17 Chief Complaint:: Discharge note HPI: Case of a 61 y/o AA female admitted to [facility] for rehabilitation treatment for alcohol dependence,cocaine dependence,co-morbid with nicotine dependence and Schizoaffective Disorder.Doing well.Uneventful hospital course.Discharge scheduled for 05/23/17. ROS: Unremarkable.No somatic complaints offered.Intact cognition.Patient is well. Current Medications: Active Medications Generic Name Dose Route Start Last Admin Trade Name Freq PRN Reason Stop Dose Admin Acetaminophen 650 mg 04/25/17 19:10 Tylenol - PO Q4H PRN PAIN Al Hydroxide/Mg Hydroxide 30 ml 04/25/17 19:10 Mylanta Oral Suspension - PO Q6H PRN DYSPEPSIA Aspirin 81 mg 04/26/17 10:00 05/22/17 09:30 Asa - PO 81 mg DAILY ANGELES Administration Benztropine Mesylate 1 mg 04/26/17 22:00 05/21/17 21:06 Cogentin - PO 1 mg HS ANGELES Administration Cyanocobalamin 100 mcg 04/26/17 10:00 05/22/17 09:30 Vitamin B12 - PO 100 mcg DAILY ANGELES Administration Diphenhydramine HCl 50 mg 04/25/17 19:10 05/13/17 21:17 Benadryl - PO 50 mg HSMR1 PRN Administration INSOMNIA Eucalyptus/Menthol/Phenol/Sorbitol 1 each 04/25/17 19:10 Cepastat Lozenge - MM Q4H PRN SORE THROAT Guaifenesin 10 ml 04/25/17 19:10 Robitussin Dm - PO Q6H PRN COUGH Hydroxyzine Pamoate 50 mg 04/25/17 19:10 Vistaril - PO Q4H PRN AGITATION Ibuprofen 400 mg 04/25/17 19:10 Motrin - PO Q6H PRN SEVERE PAIN Loperamide HCl 4 mg 04/25/17 19:10 Imodium - PO Q6H PRN DIARRHEA Magnesium Citrate 300 ml 04/25/17 19:10 Citroma - PO Q48H PRN CONSTIPATION Magnesium Hydroxide 30 ml 04/25/17 19:10 Milk Of Magnesia - PO DAILY PRN CONSTIPATION Nicotine 14 mg 04/26/17 10:00 05/22/17 09:30 Nicoderm Patch - TD 14 mg DAILY ANGELES Administration Nicotine Polacrilex 2 mg 04/25/17 19:10 Nicorette Gum - BUC Q2H PRN NICOTINE REPLACEMENT RX Non-Formulary Medication 20 mg 04/25/17 22:00 05/21/17 21:06 Simvastatin PO 20 mg HS ANGELES Administration Multivit/Folic Acid/Iron 1 tab 04/26/17 10:00 05/22/17 09:30 Vitamins (Sjr) - PO 1 tab DAILY ANGELES Administration Pseudoephedrine/Triprolidine 1 combo 04/25/17 19:10 Actifed - PO TID PRN NASAL CONGESTION Risperidone 0.5 mg 04/26/17 22:00 05/21/17 21:07 Risperdal - PO 0.5 mg HS ANGELES Administration Thiamine HCl 100 mg 04/25/17 22:00 05/21/17 21:07 Vitamin B1 - PO 100 mg HS ANGELES Administration Topiramate 50 mg 04/26/17 22:00 05/21/17 21:07 Topamax - PO 50 mg HS ANGELES Administration Trazodone HCl 100 mg 04/26/17 22:00 05/21/17 21:06 Desyrel - PO 100 mg HS ANGELES Administration Medication(s) Change(s): None.Medications reviewed.Scripts are electronically sent to [facility] ([facility]) for 30 day supply of : risperdal 0.5 mg po hs + trazodone 100 mg po hs + topiramate 50 mg po hs + cogentin 1 mg po hs.Side effects/benefits of each drug are discussed with the patient.Ms Salazar is made aware of risks of dystonias,dyskinesias,galactorrhea,gynecomastia, sexual dysfunction and anticholinergic phenomena (blurred vision,constipation, urinary hesitancy).She reports good tolerability and favorable response to this regimen.Consents (verbally) to continue aftercare on these drugs. Current Side Effect: No Lab tests ordered: No Lab tests reviewed: Yes Provider note:: Patient will complete this program on 05/23/17.Ms Salazar has fully addressed her identified issues and met her treatment goals.She will continue the same process in the setting of an outpatient service at [facility] in [facility].Patient comments that teachings at [address] have widened her insight into the negative consequences of substance abuse upon various domains of life (social,interpersonal,psychological,vocational,medical) .Ms Salazar indicates that she is motivated for maintenance of sobriety and will abstain from situations conducive to relapses.Patient is at her baseline.Stable mental status.See report.Patient is not a danger to self or others.She is ready and safe for discharge tomorrow 05/23/17. Total face to face time:: 40 Psychiatric Treatment Plan - Problem List (1) Schizoaffective disorder Current Visit: Yes (2) Alcohol dependence Current Visit: Yes (3) Cocaine dependence Current Visit: Yes (4) Nicotine dependence Current Visit: Yes Qualifiers: Nicotine product type: cigarettes Substance use status: in withdrawal Qualified Code(s): F17.213 - Nicotine dependence, cigarettes, with withdrawal (5) Hyperlipidemia Current Visit: Yes Qualifiers: Hyperlipidemia type: pure hypercholesterolemia Qualified Code(s): E78.00 - Pure hypercholesterolemia, unspecified; E78.0 - Pure hypercholesterolemia (6) Hypertension Current Visit: Yes Qualifiers: Hypertension type: essential hypertension Qualified Code(s): I10 - Essential (primary) hypertension
[2017-05-22] MEDS: TOPIRAMATE 25 MG TABLET (FP) PO SCH (21:03)
[2017-05-22] MEDS: risperiDONE 0.5 MG TABLET (FP) PO SCH (21:03)
[2017-05-22] MEDS: traZODone HCL 100 MG TABLET (FP) PO SCH (21:03)
[2017-05-22] MEDS: BENZTROPINE MESYLATE 1 MG TABLET (FP) PO SCH (21:03)
[2017-05-22] MEDS: THIAMINE HCL 100 MG TABLET (FP) PO SCH (21:04)
[2017-05-22] MEDS: PATIENT'S OWN MEDICATION (NON-FORMULARY) (Simvastatin 20 MG) PO SCH (21:04)
[2017-05-23 07:04] VITALS: BP 121/80; PULSE 69; TEMP 98.4
[2017-05-23] MEDS ORDERED: PT OWN MED DRAWER 7, Y5N ONE (08:33)
[2017-05-23] MEDS: ASPIRIN 81 MG CHEWABLE TABLETS PO SCH (09:14)
[2017-05-23] MEDS: NICOTINE 14 MG/24 HOURS TOPICAL PATCH TD SCH (09:14)
[2017-05-23] MEDS: PRENATAL VITAMINS W/ FOLIC ACID TABLET (FP) PO SCH (09:14)
[2017-05-23] MEDS: CYANOCOBALAMIN (VITAMIN B-12) 100 MCG TABLET PO SCH (09:14)
== END 2017-05-23 10:10 | disposition home or self-care (01) | DRG 772 ==
LOC: YASAS 15:00 → Y3E 20:09
PROVIDERS: ADMIT Psychiatry & Neurology Psychiatry; ATTEND Psychiatry & Neurology Psychiatry
PROC: HZ42ZZZ Group Counseling for Substance Abuse Treatment, Cognitive-Behavioral (ICD-10-PCS; principal; 2017-05-23)
DX: F10.230 Alcohol dependence with withdrawal, uncomplicated (principal); F14.20 Cocaine dependence, uncomplicated; F17.210 Nicotine dependence, cigarettes, uncomplicated; F25.9 Schizoaffective disorder, unspecified; I10 Essential (primary) hypertension; E78.00 Pure hypercholesterolemia, unspecified; Z85.3 Personal history of malignant neoplasm of breast; Z90.12 Acquired absence of left breast and nipple
CPT/HCPCS: 36415; 80053; 81003; 81015; 85027; 86593; 86803; 87389; 93005; 93010